=== PATIENT | female | born 1940 | race Caucasian/White ===

== ENCOUNTER 2016-11-15 08:00 | Outpatient (CLI) | payer MEDICARE, OTHER | END 2016-11-15 08:01 | disposition home or self-care (01) | DX: Z79.01 Long term (current) use of anticoagulants (principal) ==

== ENCOUNTER 2016-12-12 07:44 | Outpatient (CLI) | payer MEDICARE, OTHER ==
[2016-12-12 12:51] LABS: BASOPHILS # (AUTO) 0.1 10^3/uL (0.0-0.1); EOSINOPHILS # (AUTO) 0.4 10^3/uL (0.0-0.7); EOSINOPHILS % (AUTO) 7.1 %; HCT - HEMATOCRIT 29.3 % (37.0-47.0); HGB - HEMOGLOBIN 10.1 g/dL (12.0-16.0); LYMPHOCYTES % (AUTO) 18.5 %; MEAN CORPUSCULAR HEMOGLOBIN 35.6 pg (27.0-31.0); MEAN CORPUSCULAR HGB CONC 34.4 g/dL (32.0-36.0); MEAN CORPUSCULAR VOLUME 103.5 fL (81.0-99.0); MEAN PLATELET VOLUME 8.5 fL (7.9-10.8); MONOCYTES # (AUTO) 0.5 10^3/uL (0.0-1.0); MONOCYTES % (AUTO) 9.8 %; NEUTROPHILS # (AUTO) 3.3 10^3/uL (1.5-6.6); NEUTROPHILS % (AUTO) 63.6 %; RED BLOOD COUNT 2.83 10^6/uL (4.20-5.40); RED CELL DISTRIBUTION WIDTH 14.5 % (12.0-15.0); UNCORRECTED WHITE BLOOD COUNT 5.2 x10^3/uL; WHITE BLOOD COUNT 5.2 x10^3/uL (4.8-10.8)
[2016-12-12 12:55] LABS: BILIRUBIN,URINE NEGATIVE (NEGATIVE)
[2016-12-12 13:02] LABS: UA CHARGE (STRIP ONLY) YES
[2016-12-12 13:12] LABS: BILIRUBIN,TOTAL 0.6 mg/dL (0.2-1.0); BUN - BLOOD UREA NITROGEN 15 mg/dL (6-20); CALCIUM 9.1 mg/dL (8.5-10.3); CARBON DIOXIDE - CO2 28 mmol/L (21-32); CHLORIDE 104 mmol/L (101-111); CHOLESTEROL 146 mg/dL; CREATININE 0.9 mg/dL (0.4-1.0); GFR - MDRD 61 (>89); GLUCOSE 78 mg/dL (70-100); HDL CHOLESTEROL 72 mg/dL; LDL/HDL RATIO 0.9 (<4.4); POTASSIUM 4.1 mmol/L (3.5-5.0); SODIUM 141 mmol/L (135-145); TOTAL PROTEIN 6.5 g/dL (6.7-8.2); TRIGLYCERIDES 46 mg/dL; URIC ACID 4.1 mg/dL (2.6-7.2); VLDL CHOLESTEROL 9 mg/dL
== END 2016-12-12 07:45 | disposition home or self-care (01) ==
LOC: LAB.F 07:44
PROVIDERS: ATTEND Family Medicine
DX: N18.3 Chronic kidney disease, stage 3 (moderate) (principal); E78.5 Hyperlipidemia, unspecified; I80.3 Phlebitis and thrombophlebitis of lower extremities, unspecified
CPT/HCPCS: 36415; 80053; 80061; 81001; 81003; 84550; 85025; 85610

== ENCOUNTER 2017-01-16 07:57 | Outpatient (CLI) | payer MEDICARE, OTHER | END 2017-01-16 07:58 | disposition home or self-care (01) | DX: Z79.01 Long term (current) use of anticoagulants (principal) ==

== ENCOUNTER 2017-02-20 07:55 | Outpatient (CLI) | payer MEDICARE, OTHER | END 2017-02-20 07:56 | disposition home or self-care (01) | DX: Z79.01 Long term (current) use of anticoagulants (principal) ==

== ENCOUNTER 2017-03-24 07:25 | Outpatient (CLI) | payer MEDICARE, OTHER | END 2017-03-24 07:26 | disposition home or self-care (01) | LOC: LAB.F 07:25 | PROVIDERS: ATTEND Family Medicine | DX: Z79.01 Long term (current) use of anticoagulants (principal) | CPT/HCPCS: 85610 ==

== ENCOUNTER 2017-04-19 09:55 | Outpatient (CLI) | payer MEDICARE, OTHER | END 2017-04-19 09:56 | disposition home or self-care (01) | LOC: EMS 09:55 | PROVIDERS: ATTEND Surgery | DX: R11.11 Vomiting without nausea (principal) | CPT/HCPCS: A0425; A0427 ==

== ENCOUNTER 2017-04-19 10:25 | Inpatient (IN) | payer MEDICARE, OTHER ==
--- NOTE | 2017-04-19 10:43 | ED Physician Documentation ---
History of Present Illness - Stated complaint Stated Complaint: ABD PX - Chief complaint Chief Complaint: Abd Pain - Additonal information Additional information: hx from son pt has had bowel issues for a bout a month, had a CT 4 wk ago that showed a blockage, put on miralax, rpt CT 2 wk ago improved, weaned off miralax, now with NV abd discomfort and dec mental status for several days last BM unknown fever today no blood in diarrhea no urinary sx Review of Systems Constitutional: denies: Fever, Chills Ears: denies: Ear pain Throat: denies: Sore throat Cardiac: denies: Chest pain / pressure Respiratory: denies: Dyspnea GI: reports: Abdominal Pain, Nausea, Vomiting. denies: Diarrhea, Bloody / black stool : denies: Dysuria Endocrine: denies: Easy bruising / bleeding Immunocompromised: denies: Immunocompromised PD PAST MEDICAL HISTORY - Past Medical History Cardiovascular: Congestive heart failure, Hypertension - Past Surgical History Past Surgical History: Yes - Present Medications Home Medications: Ambulatory Orders Medication Instructions Recorded Confirmed Furosemide [Lasix] 20 mg PO 07/14/13 07/14/13 Gabapentin [Neurontin] 100 mg PO 07/14/13 07/14/13 Methylprednisolone [Medrol] 8 mg PO 07/14/13 07/14/13 Metoprolol Succinate [Toprol Xl] 25 mg PO BID 07/14/13 07/14/13 Potassium Chloride 10 meq PO 07/14/13 07/14/13 Pravastatin Sodium 10 mg PO 07/14/13 07/14/13 Warfarin Sodium [Coumadin] 5 mg PO 07/14/13 07/14/13 oxyCODONE/ACET 5/325 [Percocet 5 1 each PO Q4-6H PRN #20 tablet 07/14/13 mg/325 mg] - Allergies Allergies/Adverse Reactions: Allergies Allergy/AdvReac Type Severity Reaction Status Date / Time latex Allergy Unknown Verified 04/19/17 10:28 Penicillins Allergy anaphylaxis Verified 07/14/13 16:20 - Social History Does the pt smoke?: No Smoking Status: Never smoker Does the pt drink ETOH?: Yes Does the pt have substance abuse?: No PD ED PE NORMAL - Vitals Vital signs reviewed: Yes - General General: Alert and oriented X 3 - HEENT HEENT: Other (moaning, still occasional rethcing after zofran) - Neck Neck: Supple, no meningeal sign - Cardiac Cardiac: RRR - Respiratory Respiratory: No respiratory distress, Clear bilaterally - Abdomen Abdomen: Soft, Other (mild ) - Rectal Rectal: Other (empty vault, heme neg QC passed) - Derm Derm: Normal color Results - Vitals Vitals: Vital Signs - 24 hr 04/19/17 04/19/17 04/19/17 10:24 11:03 13:18 Temperature 38.6 C H Heart Rate 74 71 81 Respiratory 18 20 18 Rate Blood Pressure 114/58 L 129/52 L 107/58 L O2 Saturation 94 97 96 Oxygen O2 Source Nasal cannula - Labs Labs: Laboratory Tests 04/19/17 04/19/17 04/19/17 10:40 10:40 10:40 WBC 9.8 RBC 2.80 L Hgb 10.0 L Hct 29.4 L MCV 105.0 H MCH 35.7 H MCHC 34.0 RDW 15.7 H Plt Count 208 MPV 7.9 Neut # 8.9 H Lymph # 0.4 L Long # 0.4 Eos # 0.0 Baso # 0.1 Absolute Nucleated RBC 0.00 Nucleated RBCs 0.0 Sodium 137 Potassium 3.6 Chloride 104 Carbon Dioxide 23 Anion Gap 10.0 BUN 16 Creatinine 1.0 Estimated GFR (MDRD) 54 L Glucose 118 H Lactic Acid 1.1 Calcium 8.1 L Total Bilirubin 0.8 AST 24 ALT 12 Alkaline Phosphatase 37 L Total Protein 6.1 L Albumin 3.2 Globulin 2.9 Albumin/Globulin Ratio 1.1 Lipase 21 L Urine Color Urine Clarity Urine pH Ur Specific Sharples Urine Protein Urine Glucose (UA) Urine Ketones Urine Occult Blood Urine Nitrite Urine Bilirubin Urine Urobilinogen Ur Leukocyte Esterase Urine RBC Urine WBC Ur Epithelial Cells Ur Squamous Epith Cells Urine Bacteria Ur Microscopic Review Urine Culture Comments 04/19/17 12:45 WBC RBC Hgb Hct MCV MCH MCHC RDW Plt Count MPV Neut # Lymph # Long # Eos # Baso # Absolute Nucleated RBC Nucleated RBCs Sodium Potassium Chloride Carbon Dioxide Anion Gap BUN Creatinine Estimated GFR (MDRD) Glucose Lactic Acid Calcium Total Bilirubin AST ALT Alkaline Phosphatase Total Protein Albumin Globulin Albumin/Globulin Ratio Lipase Urine Color YELLOW Urine Clarity CLEAR Urine pH 8.0 H Ur Specific Sharples 1.010 Urine Protein 100 H Urine Glucose (UA) NEGATIVE Urine Ketones TRACE Urine Occult Blood NEGATIVE Urine Nitrite NEGATIVE Urine Bilirubin NEGATIVE Urine Urobilinogen 1 (NORMAL) Ur Leukocyte Esterase NEGATIVE Urine RBC 0-5 Urine WBC 0-3 Ur Epithelial Cells RARE Renal Tubular Ur Squamous Epith Cells FEW Squamous Urine Bacteria None Seen Ur Microscopic Review INDICATED Urine Culture Comments NOT INDICATED - Rads (name of study) CT abd pelvis Radiology: See rad report (no SBO, inflammation, or ascites, no renal stones, patchy pulm opacity lingula with L pleural effusion suggesting pna, mod hiatal hernia, CAD, borderline cardiomegaly) CXR Radiology: See rad report (LLL RLL pna) PD MEDICAL DECISION MAKING - ED course ED course: H/H not new for pt CT showed no acute abd process but did shows LLL pna which was confirmed on CXR likely cause of the vomiting will admit Departure - Departure Disposition: 66 [facility] DC/Xfer Clinical Impression: Pneumonia
[2017-04-19 10:55] LABS: BASOPHILS # (AUTO) 0.1 10^3/uL (0.0-0.1); BASOPHILS % (AUTO) 0.5 %; EOSINOPHILS % (AUTO) 0.1 %; HCT - HEMATOCRIT 29.4 % (37.0-47.0); LYMPHOCYTES # (AUTO) 0.4 10^3/uL (1.5-3.5); LYMPHOCYTES % (AUTO) 4.6 %; MEAN CORPUSCULAR HEMOGLOBIN 35.7 pg (27.0-31.0); MEAN PLATELET VOLUME 7.9 fL (7.9-10.8); MONOCYTES # (AUTO) 0.4 10^3/uL (0.0-1.0); MONOCYTES % (AUTO) 4.3 %; NEUTROPHILS # (AUTO) 8.9 10^3/uL (1.5-6.6); NEUTROPHILS % (AUTO) 90.5 %; RED CELL DISTRIBUTION WIDTH 15.7 % (12.0-15.0); UNCORRECTED WHITE BLOOD COUNT 9.8 x10^3/uL; WHITE BLOOD COUNT 9.8 x10^3/uL (4.8-10.8)
[2017-04-19 11:20] LABS: ALBUMIN/GLOBULIN RATIO 1.1 (1.0-2.2); BILIRUBIN,TOTAL 0.8 mg/dL (0.2-1.0); CALCIUM 8.1 mg/dL (8.5-10.3); POTASSIUM 3.6 mmol/L (3.5-5.0); TOTAL PROTEIN 6.1 g/dL (6.7-8.2)
--- NOTE | 2017-04-19 11:39 | CT Preliminary Report ---
Exam: CT Abdomen/Pelvis W/O IMPRESSION: 1. Negative for bowel obstruction, acute inflammatory changes, or ascites. 2. No renal stone or hydronephrosis. 3. Patchy moderate-sized pulmonary opacity in the lingula with minimal left pleural effusion, suggest ing non-specific infiltrate or pneumonia. 4. Coronary artery disease, borderline to mild cardiomegaly; negative for congestive heart failure. 5. Moderate sized hiatal hernia. [facility] SITE ID: [id number]
--- NOTE | 2017-04-19 11:42 | CT Report ---
EXAM: CT ABDOMEN AND PELVIS (CT KUB) EXAM DATE: 04/19/2017 10:59 AM. CLINICAL HISTORY: Abdominal pain, intractable vomiting, fever. COMPARISONS: None. TECHNIQUE: Routine axial helical CT imaging was performed through the abdomen and pelvis without IV c ontrast. Reconstructions: Coronal and sagittal. In accordance with CT protocol optimization, one or more of the following dose reduction techniques w ere utilized for this exam: automated exposure control, adjustment of mA and/or KV based on patient s ize, or use of iterative reconstructive technique. FINDINGS: Lung Bases and lower chest: Patchy moderate-sized opacity in the lingula with minimal left pleural ef fusion visualized. There is a moderately sized hiatal hernia. There is coronary artery calcification with borderline to mild cardiomegaly. Kidney/Ureter: No stones, hydronephrosis, or hydroureter. No perinephric fat stranding. Other Solid Organs: Noncontrast images of the solid organs are grossly unremarkable. Gallbladder/Bile Ducts: Unremarkable. Peritoneal Cavity: No free fluid, free air or surjit adenopathy. Bowel is grossly unremarkable. The ap pendix is not visualized; no mass, inflammatory changes or fluid collection in the right lower abdome n seen. Pelvic Organs: The uterus is not seen. No bladder stones or wall thickening. Noncontrast images of th e visualized pelvic organs are unremarkable. Vasculature: Diffuse vascular wall calcification of the abdominal aorta and bilateral iliac arteries without aneurysm. Other: There is a severe anterior compression fracture with hyperdensity in the anterior portion of t he T11, likely both vertebroplasty. Moderate to severe anterior compression fracture in the T9, and m ild anterior compression fracture in the T12 also noted. There is anterior transition of the L4 and L 5, 5 mm. IMPRESSION: 1. Negative for bowel obstruction, acute inflammatory changes, or ascites. 2. No renal stone or hydronephrosis. 3. Patchy moderate-sized pulmonary opacity in the lingula with minimal left pleural effusion, suggest ing non-specific infiltrate or pneumonia. 4. Coronary artery disease, borderline to mild cardiomegaly; negative for congestive heart failure. 5. Moderate sized hiatal hernia. [facility] Referring Provider Line: [phone] SITE ID: [id number]
[2017-04-19] MEDS ORDERED: ONDANSETRON 4 MG/2 ML VIAL IVP STA (12:10)
[2017-04-19] MEDS ORDERED: ACETAMINOPHEN 1,000 MG/100 ML 100 ML IV STA (12:10)
[2017-04-19] MEDS ORDERED: ACETAMINOPHEN 1,000 MG/100 ML 100 ML IV ONE (12:11)
[2017-04-19] MEDS ORDERED: ONDANSETRON 4 MG/2 ML VIAL ONE (12:19)
[2017-04-19 13:42] LABS: BILIRUBIN,URINE NEGATIVE (NEGATIVE)
[2017-04-19 13:47] LABS: UA w/ MICROSCOPIC CHARGE YES
--- NOTE | 2017-04-19 13:51 | XRAY Preliminary Report ---
Exam: XR Chest 2 View PA/LAT IMPRESSION: 1. Trace left pleural effusion with left lower lobe and minimal right lower lobe airspace disease sug gestive of pneumonia. 2. Cardiomegaly. [facility] SITE ID: [id number]
--- NOTE | 2017-04-19 13:53 | XRAY Report ---
EXAM: CHEST RADIOGRAPHY EXAM DATE: 04/19/2017 01:09 PM. CLINICAL HISTORY: Intractable vomiting and fever. COMPARISON: Chest x-ray 07/14/2013. TECHNIQUE: 2 views. FINDINGS: Lungs/Pleura: Trace left pleural effusion with patchy airspace disease in the left lower lobe and min imally in the right lower lobe. Mediastinum: Mild cardiomegaly with atherosclerotic calcification. Other: Old appearing compression fractures mid thoracic spine status post vertebroplasty at the lower thoracic spine. IMPRESSION: 1. Trace left pleural effusion with left lower lobe and minimal right lower lobe airspace disease sug gestive of pneumonia. 2. Cardiomegaly. [facility] Referring Provider Line: [phone] SITE ID: [id number]
[2017-04-19 13:54] LABS: WBC,URINE 0-3 /HPF (0-5)
[2017-04-19 13:55] LABS: UR CULTURE IF IND NOT INDICATED
[2017-04-19] MEDS ORDERED: cefTRIAXone 1 GM in SODIUM CHLORIDE 0.9% MINIBAG 100 ML IV STA (13:57)
[2017-04-19] MEDS ORDERED: AZITHROMYCIN INJ 500 MG in SODIUM CHLORIDE 0.9% 250 ML IV STA (13:57)
[2017-04-19] MEDS ORDERED: cefTRIAXone 1 GM VIAL ONE (14:08)
[2017-04-19] MEDS ORDERED: ONDANSETRON 4 MG/2 ML VIAL IVP PRN (14:32)
[2017-04-19] MEDS ORDERED: PROCHLORPERAZINE 10 MG/2 ML VIAL IVP PRN (14:32)
[2017-04-19] MEDS ORDERED: ALBUTEROL NEB 2.5 MG/3 ML INH PRN (14:32)
[2017-04-19] MEDS ORDERED: SODIUM CHLORIDE FLUSH 0.9% 10 ML SYRINGE IVP PRN (14:32)
[2017-04-19] MEDS ORDERED: ACETAMINOPHEN 325 MG TABLET PO PRN (14:32)
[2017-04-19] MEDS ORDERED: PROMETHAZINE 25 MG/1 ML VIAL IM PRN (14:32)
[2017-04-19] MEDS ORDERED: oxyCODONE 5 MG TABLET PO PRN (14:32)
[2017-04-19] MEDS ORDERED: ZOLPIDEM 5 MG TABLET PO PRN (14:32)
[2017-04-19] MEDS ORDERED: IBUPROFEN 400 MG TABLET PO PRN (14:32)
[2017-04-19 14:58] LABS: INR 1.4 (0.8-1.2); PT - PROTHROMBIN TIME 15.5 secs (9.9-12.6)
[2017-04-19] MEDS ORDERED: ACETAMINOPHEN 1,000 MG/100 ML 100 ML IV PRN (15:36)
[2017-04-19] MEDS: SODIUM CHLORIDE 0.9% 1,000 ML IV SCH (16:08)
[2017-04-19] MEDS: AZITHROMYCIN INJ 500 MG in SODIUM CHLORIDE 0.9% 250 ML IV SCH (17:20)
[2017-04-19] MEDS: SACCHAROMYCES BOULARDII 250 MG CAPSULE PO SCH (17:21)
--- NOTE | 2017-04-19 18:59 | HISTORY & PHYSICAL EXAMINATION ---
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 difficile 5 years ago, history of MRSA pneumonia and osteoporosis as well as osteoarthritis who presents to the emergency department with a chief complaint of nausea and vomiting. The patient states that she was in her normal state of health 2 days ago and went about her normal day but then that evening when she went to bed she began feeling nauseous and had an episode of vomiting. She states that after that episode she has been having dry heaving for the last day and a half to. She states that yesterday she ran a fever her son has been trying to treat her with fluids and Tylenol at home. The patient's fever was 101.6 at home. The patient states that today she was feeling chills and she's having generalized weakness to a point where she could barely get up out of her bed. The patient does admit to some abdominal pain but feels that it is secondary to her having dry heaving over the last 2 days. She also admits that she's been sneezing more often than normal. She otherwise denies any shortness of air or cough. She denies any chest pain. She denies any urinary urgency frequency or dysuria. She denies any headaches blurred vision or focal neurologic deficits. On presentation to the emergency department the patient was febrile with a temperature of 38.6 otherwise vital signs were within normal limits. The patient 's lab work revealed no leukocytosis it did show anemia. The patient's INR was subtherapeutic at 1.4. Her electrolytes were within normal limits and she had a normal lactic acid. The patient was given an antibiotic in the emergency department with which she did feel better but then later began having nausea and felt as though she was going to vomit again. The patient did not have any significant abdominal tenderness but a CT of the abdomen and pelvis was ordered. The CT was negative for any bowel obstruction or acute inflammatory changes or ascites. Also did not reveal any renal stones or hydronephrosis. The patient however did have patchy moderate-sized pulmonary opacities in the lingula with minimal left pleural effusion suggesting nonspecific infiltrate or pneumonia. The patient also had a chest x-ray which revealed a left lower lobe and minimal right lower lobe airspace disease suggestive for pneumonia. Given the patient's presentation with nausea vomiting and generalized weakness as well as fever this appeared most likely to be an atypical pneumonia. The patient was initially given ceftriaxone and azithromycin in the emergency department and she was admitted for pneumonia. Review of Systems - Constitutional Constitutional: reports: Fatigue, Fever, Chills, Malaise, Weakness, Poor appetite. denies: Diaphoresis, Night sweats, Weight gain, Weight loss - Eyes Eyes: denies: Pain, Irritation, Amaurosis, Blurred vision, Spots in vision, Field loss, Vision loss, Dipolpia, Corrective lenses, Other - Ears, Nose & Throat Ears, Nose & Throat: denies: Ear pain, Hearing loss, Hearing aids, Tinnitus, Vertigo, Nasal pain, Nasal discharge, Nosebleeds, Nasal obstruction, Nasal congestion, Postnasal drainage, Dentures, Sore throat, Hoarseness, Mouth lesions , Bleeding gums, Dental decay, Dental pain, Other - Cardiovascular Cariovascular: denies: Irregular heart rate, Palpitations, Chest pain, Edema, Lightheadedness, Syncope, Exertional dyspnea, Decr. exercise tolerance, Orthopnea, Other - Respiratory Respiratory: denies: Cough, Sputum production, Wheezing, Snoring, Hemoptysis, Orthopnea, SOB at rest, SOB with exertion, Apnea, Stridor, Pleuritic pain, Other - Gastrointestinal Gastrointestinal: reports: Abdominal pain, Nausea, Vomiting, Bile emesis, Poor appetite. denies: Abdominal distention, Constipation, Diarrhea, Change in bowel habits, Rectal bleeding, Black stools, Bloody stools, Jimmy blood emesis, Coffee grounds emesis, Reflux/heartburn, Bloating - Genitourinary Genitourinary: denies: Dysuria, Frequency, Urgency, Hematuria, Incontinence, Nocturia - Musculoskeletal Musculoskeletal: denies: Muscle pain, Back pain, Muscle aches, Stiffness, Limited range of motion, Muscle weakness, Gout, Joint pain, Joint swelling - Integumentary Integumentary: denies: Rash, Pruritis, Lesions, Dryness, Lumps, Acne - Neurological Neurological: reports: General weakness. 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 2 hypertension. 3 hyperlipidemia. 4 history of see differential 5 years ago. 5 MRSA pneumonia. 6 osteoporosis. 7 osteoarthritis. 8 recurrent falls with multiple broken bones. 9 rotator cuff surgery - Past Surgical History Ortho: reports: Rotator cuff repair, Shoulder arthroplasty - Family & Social History Family History Comment/Other: Brother had coronary artery disease, father had an NH at the age of 49 and mom had breast cancer. Living arrangement: At home Living Situation: With family Social History Notes: The patient lives in [facility] she lives with her son. She has 2 sons one of whom lives in [facility] and the other who lives with her. She's been living on [facility] since [place]. She was born and raised in [facility]. She is a nonsmoker she does drink a glass of wine a night she denies any illicit drug use. - Substance History Use: Uses substance without health or social issues: NONE Abuse: Recurrent use of substance despite neg consequences: NONE Dependence: Experiences withdrawal or developed tolerances: NONE - POLST Patient has POLST: No POLST Status: Full Code Meds/Allgy - Home Medications Home Medications: Ambulatory Orders Medication Instructions Recorded Confirmed Furosemide [Lasix] 20 mg PO Q48H 07/14/13 04/19/17 Methylprednisolone [Medrol] 8 mg PO 07/14/13 07/14/13 Metoprolol Succinate [Toprol Xl] 25 mg PO BID 07/14/13 07/14/13 Potassium Chloride 10 meq PO DAILYWM 07/14/13 04/19/17 Warfarin Sodium [Coumadin] 5 mg PO 07/14/13 07/14/13 Alendronate Sodium [Alendronate 70 mg PO .WEEKLY 04/19/17 04/19/17 Sodium] Allopurinol [Allopurinol] 200 mg PO DAILY 04/19/17 04/19/17 Citalopram Hydrobromide 20 mg PO DAILY 04/19/17 04/19/17 [Citalopram HBr] Gabapentin [Gabapentin] 600 mg PO TID 04/19/17 04/19/17 Omeprazole [Omeprazole] 20 mg PO QDAC 04/19/17 04/19/17 Pravastatin Sodium [Pravastatin 80 mg PO QPM 04/19/17 04/19/17 Sodium] - Allergies Allergies/Adverse Reactions: Allergies Allergy/AdvReac Type Severity Reaction Status Date / Time latex Allergy Unknown Verified 04/19/17 10:28 Penicillins Allergy anaphylaxis Verified 07/14/13 16:20 Exam - Vital Signs Reviewed Vital Signs: Yes Vital Signs: Vital Signs x48h Temp Pulse Pulse Resp BP BP Pulse Ox 04/19/17 18:46 37.0 C 04/19/17 16:05 36.5 C 66 20 101/65 94 04/19/17 15:04 76 18 111/58 L 93 - Physical Exam General Appearance: positive: Alert, Mild distress (Nauseated, looks very dry) Eyes Bilateral: positive: Normal inspection, PERRL, EOMI, No lid inflammation, Conjunctivae nml, No scleral icterus ENT: positive: ENT inspection nml, Pharynx nml, Dry mucous membranes. negative : Purulent nasal drainage, Pharyngeal erythema, Oral lesions Neck: positive: Nml inspection, Thyroid nml, No JVD, Trachea midline. negative : Thyromegaly, Lymphadenopathy (R), Lymphadenopathy (L), Tracheal deviation Respiratory: positive: Chest non-tender, No respiratory distress, Breath sounds nml, Rales (Left base), Rhonchi (Bases bilaterally). negative: Wheezes Cardiovascular: positive: Regular rate & rhythm, No murmur, No gallop Peripheral Pulses: positive: 2+ Abdomen: positive: No organomegaly, Nml bowel sounds, No distention, Tenderness (Mild tenderness in the lower abdomen). negative: Guarding, Rebound, Hepatomegaly Back: positive: Nml inspection. negative: CVA tenderness (R), CVA tenderness (L ) Skin: positive: Color nml, No rash, Warm, Dry Extremities: positive: Non-tender, Full ROM, Nml appearance, No pedal edema Neurologic/Psychiatric: positive: Oriented x3, CN's nml (2-12), Motor nml, Sensation nml, Mood/affect nml Conclusion/Plan - Problem List (1) Community acquired pneumonia Conclusion/Plan: Patient presented with symptoms of atypical pneumonia with nausea, vomiting, fever and generalized weakness. She did have some increased sneezing but no shortness of breath and no cough. Her CT abd and CXR did show findings consistent with pneumonia Patient treated with IV ceftriaxone and azithromycin in the ED Given that this looks like atypical pneumonia we will treat with azithromycin alone Also will send off for mycoplasma and legionella ag Given IVFs Control nausea with antiemetics (2) Intractable nausea and vomiting Conclusion/Plan: Likely secondary to atypical pneumonia viral vs bacterial Will treat with azithromycin IVFs Antiemietics IV (3) Hypertension Conclusion/Plan: BP controlled will continue home meds Qualifiers: Hypertension type: essential hypertension Qualified Code(s): I10 - Essential (primary) hypertension (4) Hyperlipidemia Conclusion/Plan: Continue home statin (5) History of pulmonary embolism Conclusion/Plan: Continue coumadin INR subtherapeutic Monitor INR daily (6) Subtherapeutic international normalized ratio (INR) Conclusion/Plan: Monitor INR Adjust coumadin - Lab Results Lab results reviewed: Yes Ej Bones: 04/19/17 10:40 04/19/17 10:40 - Diagnostic Imaging Results Diagnostic Imaging Results: positive: Final report reviewed - EKG Results EKG Interpreted Independently: Yes Issues/Core Measures - Anticipated LOS Anticipated Stay Length: 2 or more midnights - DVT/VTE - Prophylaxis VTE/DVT Device ordered at admit?: Yes
[2017-04-19] MEDS: ACETAMINOPHEN 1,000 MG/100 ML 100 ML IV PRN (21:10)
[2017-04-19] MEDS: SODIUM CHLORIDE FLUSH 0.9% 10 ML SYRINGE IVP SCH (21:14)
[2017-04-19] MEDS: PRAVASTATIN 40 MG TABLET PO SCH (23:04)
[2017-04-19] MEDS: METOPROLOL SUCCINATE 25 MG TABLET PO SCH (23:04)
[2017-04-19] MEDS: GABAPENTIN 300 MG CAPSULE PO SCH (23:05)
[2017-04-20] MEDS: SODIUM CHLORIDE 0.9% 1,000 ML IV SCH ×3 (03:12→18:40)
[2017-04-20] MEDS: SODIUM CHLORIDE FLUSH 0.9% 10 ML SYRINGE IVP SCH ×3 (05:25→21:26)
[2017-04-20] MEDS: GABAPENTIN 300 MG CAPSULE PO SCH ×3 (06:16→21:25)
[2017-04-20] MEDS: PANTOPRAZOLE 40 MG TABLET PO SCH (06:16)
[2017-04-20 06:54] LABS: BASOPHILS % (AUTO) 0.4 %; EOSINOPHILS % (AUTO) 0.3 %; HCT - HEMATOCRIT 30.2 % (37.0-47.0); HGB - HEMOGLOBIN 10.2 g/dL (12.0-16.0); LYMPHOCYTES # (AUTO) 0.4 10^3/uL (1.5-3.5); LYMPHOCYTES % (AUTO) 4.4 %; MEAN CORPUSCULAR HEMOGLOBIN 35.8 pg (27.0-31.0); MEAN CORPUSCULAR HGB CONC 33.7 g/dL (32.0-36.0); MEAN CORPUSCULAR VOLUME 106.4 fL (81.0-99.0); MEAN PLATELET VOLUME 7.8 fL (7.9-10.8); MONOCYTES # (AUTO) 0.3 10^3/uL (0.0-1.0); MONOCYTES % (AUTO) 3.6 %; NEUTROPHILS # (AUTO) 7.8 10^3/uL (1.5-6.6); NEUTROPHILS % (AUTO) 91.3 %; RED BLOOD COUNT 2.83 10^6/uL (4.20-5.40); RED CELL DISTRIBUTION WIDTH 15.6 % (12.0-15.0); UNCORRECTED WHITE BLOOD COUNT 8.5 x10^3/uL; WHITE BLOOD COUNT 8.5 x10^3/uL (4.8-10.8)
[2017-04-20 07:01] LABS: CALCIUM 7.8 mg/dL (8.5-10.3); POTASSIUM 3.5 mmol/L (3.5-5.0)
[2017-04-20 07:15] LABS: INR 1.2 (0.8-1.2); PT - PROTHROMBIN TIME 13.9 secs (9.9-12.6)
[2017-04-20] MEDS: POLYETHYLENE GLYCOL 3350 17 GM PACKET PO SCH (08:59)
[2017-04-20] MEDS: SACCHAROMYCES BOULARDII 250 MG CAPSULE PO SCH ×2 (08:59→16:58)
[2017-04-20] MEDS: ALLOPURINOL 100 MG TABLET PO SCH (08:59)
[2017-04-20] MEDS: CITALOPRAM 10 MG TABLET PO SCH (08:59)
[2017-04-20] MEDS: METOPROLOL SUCCINATE 25 MG TABLET PO SCH ×2 (08:59→21:25)
[2017-04-20] MEDS ORDERED: cefTRIAXone 2 GM in SODIUM CHLORIDE 0.9% MINIBAG 100 ML IV SCH (09:00)
[2017-04-20] MEDS: AZITHROMYCIN INJ 500 MG in SODIUM CHLORIDE 0.9% 250 ML IV SCH (11:20)
[2017-04-20] MEDS ORDERED: WARFARIN 5 MG TABLET PO SCH (14:00)
[2017-04-20] MEDS: cefTRIAXone 2 GM in SODIUM CHLORIDE 0.9% MINIBAG 100 ML IV SCH (14:53)
--- NOTE | 2017-04-20 16:03 | PROVIDER PROGRESS NOTE ---
Assessment/Plan - Problem List (1) Community acquired pneumonia Assessment/Plan: Patient presented with symptoms of atypical pneumonia with nausea, vomiting, fever and generalized weakness. She did have some increased sneezing but no shortness of breath and no cough. Her CT abd and CXR did show findings consistent with pneumonia Patient initially thought to have atypical pneumonia but now appears to have more typical symptoms Patient having coughing, hypoxia and increased shortness of breath Appears to be worsening Will place on Ceftriaxone and azithromycin IV day 2 Supplemental O2 Appears very weak may need PT once improved Patient does have a subtherapeutic INR and could also have a PE will monitor respiratory status closely (2) Intractable nausea and vomiting Conclusion/Plan: Likely secondary to atypical pneumonia or viral gastroenteritis IVFs Antiemietics IV Resolving (3) Hypertension Conclusion/Plan: BP controlled will continue home meds Qualifiers: Hypertension type: essential hypertension Qualified Code(s): I10 - Essential (primary) hypertension (4) Hyperlipidemia Conclusion/Plan: Continue home statin (5) History of pulmonary embolism Conclusion/Plan: Continue coumadin INR subtherapeutic INR down to 1.2 today will increase next dose of coumadin (6) Subtherapeutic international normalized ratio (INR) Conclusion/Plan: Monitor INR INR down to 1.2 today Adjust coumadin dose - Current Meds Current Meds: Current Medications Generic Name Dose Route Start Last Admin Trade Name Martita PRN Reason Stop Dose Admin Allopurinol 200 mg 04/20/17 09:00 04/20/17 08:59 Zyloprim PO 200 mg DAILY LATANYA Administration Citalopram Hydrobromide 20 mg 04/20/17 09:00 04/20/17 08:59 Celexa PO 20 mg DAILY LATANYA Administration Gabapentin 600 mg 04/19/17 22:00 04/20/17 14:12 Neurontin PO 600 mg TID LATANYA Administration Sodium Chloride 1,000 mls @ 100 mls/hr 04/19/17 16:30 04/20/17 14:45 Normal Saline 0.9% IV Not Given .Q10H LATANYA Azithromycin 500 mg/ Sodium 250 mls @ 250 mls/hr 04/19/17 17:00 04/20/17 11:20 Chloride IV 250 mls/hr DAILY@1000 LATANYA Administration Acetaminophen 100 mls @ 400 mls/hr 04/19/17 18:00 04/19/17 21:10 Ofirmev IV 400 mls/hr Q6HR PRN Administration PAIN Ceftriaxone Sodium 2 gm/ 100 mls @ 200 mls/hr 04/20/17 14:45 04/20/17 14:53 Sodium Chloride IV 200 mls/hr DAILY LATANYA Administration Metoprolol Succinate 25 mg 04/19/17 21:00 04/20/17 08:59 Toprol Xl PO 25 mg BID LATANYA Administration Ondansetron HCl 4 mg 04/19/17 14:32 04/19/17 21:14 Zofran Inj IVP 4 mg Q6HR PRN Administration Nausea / Vomiting Pantoprazole Sodium 40 mg 04/20/17 07:00 04/20/17 06:16 Protonix PO 40 mg QDAC LATANYA Administration Polyethylene Glycol 17 gm 04/20/17 09:00 04/20/17 08:59 Miralax PO 17 gm DAILY LATANYA Administration Pravastatin Sodium 80 mg 04/19/17 21:00 04/19/17 23:04 Pravachol PO Not Given QPM LATANYA Saccharomyces Boulardii 250 mg 04/19/17 17:00 04/20/17 08:59 Florastor PO 250 mg BIDWM LATANYA Administration Sodium Chloride 10 ml 04/19/17 14:32 04/19/17 16:08 Normal Saline Flush 0.9% IVP 10 ml PRN PRN Administration NEEDED PER PROVIDER ORDERS Sodium Chloride 10 ml 04/19/17 22:00 04/20/17 14:12 Normal Saline Flush 0.9% IVP Not Given Q8HR LATANYA Warfarin Sodium 5 mg 04/20/17 14:00 04/20/17 14:12 Coumadin PO 5 mg QDWARFARIN LATANYA Administration - Lab Result Lab results reviewed: Yes Fish Bone Diagrams: 04/20/17 06:30 04/20/17 06:30 - EKG Results EKG Interpreted Independently: Yes - Diagnostic Imaging Results Diagnostic Imaging Results: positive: Final report reviewed - Additional Planning Condition/Complexity: Improved My Orders: My Active Orders 04/19/17 16:33 Cultural Swab [RC] .ONCE 04/19/17 18:00 Acetaminophen 1,000 mg/100 ml [Ofirmev] 100 ml IV Q6HR 04/19/17 18:10 RT [Nebulizer/MDI Tx.] [RC] .Q4prn 04/20/17 14:45 cefTRIAXone [Rocephin] 2 gm Sodium Chloride 0.9% Minibag [Normal Saline 0.9% Minibag] 100 ml IV DAILY Plan Discussed with:: Patient Time Spent: 31-60 minutes Subjective - Subjective Patient Reports: Cough (Started coughing since last night), Fatigue, Shortness of Breath (Patient feels short of breath this morning.), Other (She feels very weak. No chest pain.) Nursing Reports: No Complaints Objective Vital Signs: Vital Signs - 24 hr 04/19/17 04/19/17 04/19/17 16:05 18:46 20:57 Temperature 36.5 C 37.0 C 38.1 C H Heart Rate [ 66 76 Brachial] Respiratory 20 24 Rate Blood Pressure [Left Brachial artery] Blood Pressure 101/65 133/67 H [Right Brachial artery] O2 Saturation 94 99 04/20/17 04/20/17 04/20/17 00:00 06:18 08:34 Temperature 36.9 C 36.7 C 37.7 C H Heart Rate [ 66 70 Brachial] Respiratory 16 19 Rate Blood Pressure 115/69 [Left Brachial artery] Blood Pressure 112/68 [Right Brachial artery] O2 Saturation 94 96 Oxygen O2 Source Nasal cannula I&O (Last 24 Hrs): Intake and Output Totals x24h 04/18/17 04/19/17 04/20/17 23:59 23:59 23:59 Intake Total 1163 2356 Balance 1163 2356 General: Alert, Oriented x3, Cooperative, Mild distress (Tachypnic and short of breath) HEENT: Atraumatic, PERRLA, EOMI Neck: Supple, No JVD, No thyromegaly, +2 carotid pulse wo bruit, No LAD Neuro: Alert, Non Focal, CN 2-12 Grossly Intact, Oriented Times 3 Cardiovascular: Regular rate, Normal S1, Normal S2, No murmurs Respiratory: Chest non-tender, Rhonchi (Bibasilar) Abdomen: Normal bowel sounds, Soft, No tenderness, No hepatospenomegaly, No masses Extremities: No clubbing, No cyanosis, No edema, Normal pulses Skin: No rashes, No breakdown - Results Results: Laboratory Results WBC 8.5 x10^3/uL (4.8-10.8) 04/20/17 06:30 RBC 2.83 10^6/uL (4.20-5.40) L 04/20/17 06:30 Hgb 10.2 g/dL (12.0-16.0) L 04/20/17 06:30 Hct 30.2 % (37.0-47.0) L 04/20/17 06:30 MCV 106.4 fL (81.0-99.0) H 04/20/17 06:30 MCH 35.8 pg (27.0-31.0) H 04/20/17 06:30 MCHC 33.7 g/dL (32.0-36.0) 04/20/17 06:30 RDW 15.6 % (12.0-15.0) H 04/20/17 06:30 Plt Count 204 10^3/uL (130-450) 04/20/17 06:30 MPV 7.8 fL (7.9-10.8) L 04/20/17 06:30 Neut # 7.8 10^3/uL (1.5-6.6) H 04/20/17 06:30 Lymph # 0.4 10^3/uL (1.5-3.5) L 04/20/17 06:30 Ritchie # 0.3 10^3/uL (0.0-1.0) 04/20/17 06:30 Eos # 0.0 10^3/uL (0.0-0.7) 04/20/17 06:30 Baso # 0.0 10^3/uL (0.0-0.1) 04/20/17 06:30 Absolute Nucleated RBC 0.00 x10^3/uL 04/20/17 06:30 Nucleated RBCs 0.0 /100WBC 04/20/17 06:30 PT 13.9 secs (9.9-12.6) H 04/20/17 06:30 INR 1.2 (0.8-1.2) 04/20/17 06:30 Sodium 138 mmol/L (135-145) 04/20/17 06:30 Potassium 3.5 mmol/L (3.5-5.0) 04/20/17 06:30 Chloride 105 mmol/L (101-111) 04/20/17 06:30 Carbon Dioxide 22 mmol/L (21-32) 04/20/17 06:30 Anion Gap 11.0 (6-13) 04/20/17 06:30 BUN 16 mg/dL (6-20) 04/20/17 06:30 Creatinine 1.0 mg/dL (0.4-1.0) 04/20/17 06:30 Estimated GFR (MDRD) 54 (>89) L 04/20/17 06:30 Glucose 106 mg/dL (70-100) H 04/20/17 06:30 Lactic Acid 1.1 mmol/L (0.5-2.2) 04/19/17 10:40 Calcium 7.8 mg/dL (8.5-10.3) L 04/20/17 06:30 Total Bilirubin 0.8 mg/dL (0.2-1.0) 04/19/17 10:40 AST 24 IU/L (10-42) 04/19/17 10:40 ALT 12 IU/L (10-60) 04/19/17 10:40 Alkaline Phosphatase 37 IU/L (42-121) L 04/19/17 10:40 Total Protein 6.1 g/dL (6.7-8.2) L 04/19/17 10:40 Albumin 3.2 g/dL (3.2-5.5) 04/19/17 10:40 Globulin 2.9 g/dL (2.1-4.2) 04/19/17 10:40 Albumin/Globulin Ratio 1.1 (1.0-2.2) 04/19/17 10:40 Lipase 21 U/L (22-51) L 04/19/17 10:40 Urine Color YELLOW 04/19/17 12:45 Urine Clarity CLEAR (CLEAR) 04/19/17 12:45 Urine pH 8.0 PH (5.0-7.5) H 04/19/17 12:45 Ur Specific [place] 1.010 (1.002-1.030) 04/19/17 12:45 Urine Protein 100 mg/dL (NEGATIVE) H 04/19/17 12:45 Urine Glucose (UA) NEGATIVE mg/dL (NEGATIVE) 04/19/17 12:45 Urine Ketones TRACE mg/dL (NEGATIVE) 04/19/17 12:45 Urine Occult Blood NEGATIVE (NEGATIVE) 04/19/17 12:45 Urine Nitrite NEGATIVE (NEGATIVE) 04/19/17 12:45 Urine Bilirubin NEGATIVE (NEGATIVE) 04/19/17 12:45 Urine Urobilinogen 1 (NORMAL) E.U./dL (NORMAL) 04/19/17 12:45 Ur Leukocyte Esterase NEGATIVE (NEGATIVE) 04/19/17 12:45 Urine RBC 0-5 /HPF (0-5) 04/19/17 12:45 Urine WBC 0-3 /HPF (0-5) 04/19/17 12:45 Ur Epithelial Cells RARE Renal Tubular /HPF (<= Few) 04/19/17 12:45 Ur Squamous Epith Cells FEW Squamous (<= Few) 04/19/17 12:45 Urine Bacteria None Seen /HPF (None Seen) 04/19/17 12:45 Ur Microscopic Review INDICATED 04/19/17 12:45 Urine Culture Comments NOT INDICATED 04/19/17 12:45
[2017-04-20] MEDS: ACETAMINOPHEN 1,000 MG/100 ML 100 ML IV PRN (16:10)
[2017-04-20] MEDS ORDERED: WARFARIN 5 MG TABLET PO ONE (17:00)
[2017-04-20] MEDS: PRAVASTATIN 40 MG TABLET PO SCH (21:26)
[2017-04-21] MEDS: SODIUM CHLORIDE 0.9% 1,000 ML IV SCH ×2 (04:13→19:45)
[2017-04-21 05:42] LABS: BASOPHILS % (AUTO) 0.6 %; EOSINOPHILS # (AUTO) 0.1 10^3/uL (0.0-0.7); EOSINOPHILS % (AUTO) 1.8 %; HCT - HEMATOCRIT 28.2 % (37.0-47.0); HGB - HEMOGLOBIN 9.2 g/dL (12.0-16.0); LYMPHOCYTES # (AUTO) 0.5 10^3/uL (1.5-3.5); LYMPHOCYTES % (AUTO) 7.8 %; MEAN CORPUSCULAR HEMOGLOBIN 35.3 pg (27.0-31.0); MEAN CORPUSCULAR HGB CONC 32.7 g/dL (32.0-36.0); MEAN CORPUSCULAR VOLUME 107.8 fL (81.0-99.0); MEAN PLATELET VOLUME 7.9 fL (7.9-10.8); MONOCYTES # (AUTO) 0.4 10^3/uL (0.0-1.0); MONOCYTES % (AUTO) 6.7 %; NEUTROPHILS # (AUTO) 5.4 10^3/uL (1.5-6.6); NEUTROPHILS % (AUTO) 83.1 %; RED BLOOD COUNT 2.62 10^6/uL (4.20-5.40); RED CELL DISTRIBUTION WIDTH 15.3 % (12.0-15.0); UNCORRECTED WHITE BLOOD COUNT 6.5 x10^3/uL; WHITE BLOOD COUNT 6.5 x10^3/uL (4.8-10.8)
[2017-04-21 05:46] LABS: INR 1.7 (0.8-1.2); PT - PROTHROMBIN TIME 18.8 secs (9.9-12.6)
[2017-04-21 05:51] LABS: CALCIUM 7.4 mg/dL (8.5-10.3); CREATININE 0.9 mg/dL (0.4-1.0); POTASSIUM 3.5 mmol/L (3.5-5.0)
[2017-04-21] MEDS: GABAPENTIN 300 MG CAPSULE PO SCH ×3 (06:04→20:33)
[2017-04-21] MEDS: PANTOPRAZOLE 40 MG TABLET PO SCH (06:04)
[2017-04-21] MEDS: SODIUM CHLORIDE FLUSH 0.9% 10 ML SYRINGE IVP SCH ×3 (06:05→20:34)
[2017-04-21] MEDS: SACCHAROMYCES BOULARDII 250 MG CAPSULE PO SCH (08:40)
[2017-04-21] MEDS: ALLOPURINOL 100 MG TABLET PO SCH (08:41)
[2017-04-21] MEDS: DOCUSATE SODIUM 250 MG CAPSULE PO SCH (08:41)
[2017-04-21] MEDS: CITALOPRAM 10 MG TABLET PO SCH (08:41)
[2017-04-21] MEDS: cefTRIAXone 2 GM in SODIUM CHLORIDE 0.9% MINIBAG 100 ML IV SCH (08:41)
[2017-04-21] MEDS: POLYETHYLENE GLYCOL 3350 17 GM PACKET PO SCH (08:42)
[2017-04-21] MEDS: SENNA 8.6 MG TABLET PO SCH (08:42)
[2017-04-21 09:45] LABS: IRON < 6 ug/dL (28-170); TOTAL IRON BINDING CAPACITY 182 ug/dL (250-450); TRANSFERRIN 130 mg/dL (192-382)
[2017-04-21] MEDS: AZITHROMYCIN INJ 500 MG in SODIUM CHLORIDE 0.9% 250 ML IV SCH (09:49)
[2017-04-21] MEDS: METOPROLOL SUCCINATE 25 MG TABLET PO SCH ×2 (09:49→20:34)
[2017-04-21] MEDS: FERROUS SULFATE 325 MG TABLET PO SCH ×2 (13:38→16:51)
[2017-04-21] MEDS: WARFARIN 5 MG TABLET PO SCH (13:39)
--- NOTE | 2017-04-21 18:42 | PROVIDER PROGRESS NOTE ---
Assessment/Plan - Problem List (1) Community acquired pneumonia Assessment/Plan: Patient presented with symptoms of atypical pneumonia with nausea, vomiting, fever and generalized weakness. She did have some increased sneezing but no shortness of breath and no cough. Her CT abd and CXR did show findings consistent with pneumonia Patient initially thought to have atypical pneumonia but now appears to have more typical symptoms Patient having coughing, hypoxia and increased shortness of breath Improved today but still weak and short of breath with exertion, cough improved Will place on Ceftriaxone and azithromycin IV day 3 Supplemental O2 Wean O2 Patient is weak will have PT assess for possible rehab or home pT (2) Intractable nausea and vomiting Conclusion/Plan: Likely secondary to atypical pneumonia or viral gastroenteritis IVFs Antiemietics IV Resolved (3) Hypertension Conclusion/Plan: BP controlled will continue home meds Qualifiers: Hypertension type: essential hypertension Qualified Code(s): I10 - Essential (primary) hypertension (4) Hyperlipidemia Conclusion/Plan: Continue home statin (5) History of pulmonary embolism Conclusion/Plan: Continue coumadin INR subtherapeutic INR down to 1.7 today Coumadin dose increased yesterday Monitor (6) Subtherapeutic international normalized ratio (INR) Conclusion/Plan: Monitor INR INR down to 1.7 today Adjust coumadin dose as needed - Current Meds Current Meds: Current Medications Generic Name Dose Route Start Last Admin Trade Name Martita PRN Reason Stop Dose Admin Allopurinol 200 mg 04/20/17 09:00 04/21/17 08:41 Zyloprim PO 200 mg DAILY LATANYA Administration Citalopram Hydrobromide 20 mg 04/20/17 09:00 04/21/17 08:41 Celexa PO 20 mg DAILY LATANYA Administration Docusate Sodium 250 - 500 mg 04/21/17 09:00 04/21/17 08:41 Colace 250mg Capsule PO 500 mg DAILY LATANYA Administration Ferrous Sulfate 325 mg 04/21/17 12:00 04/21/17 16:51 Feosol PO 325 mg BIDWM LATANYA Administration Gabapentin 600 mg 04/19/17 22:00 04/21/17 13:38 Neurontin PO 600 mg TID LATANYA Administration Sodium Chloride 1,000 mls @ 100 mls/hr 04/19/17 16:30 04/21/17 04:13 Normal Saline 0.9% IV 100 mls/hr .Q10H LATANYA Administration Azithromycin 500 mg/ Sodium 250 mls @ 250 mls/hr 04/19/17 17:00 04/21/17 09:49 Chloride IV 250 mls/hr DAILY@1000 LATANYA Administration Acetaminophen 100 mls @ 400 mls/hr 04/19/17 18:00 04/20/17 16:10 Ofirmev IV 400 mls/hr Q6HR PRN Administration PAIN Ceftriaxone Sodium 2 gm/ 100 mls @ 200 mls/hr 04/20/17 14:45 04/21/17 08:41 Sodium Chloride IV 200 mls/hr DAILY LATANYA Administration Metoprolol Succinate 25 mg 04/19/17 21:00 04/21/17 09:49 Toprol Xl PO Not Given BID LATANYA Ondansetron HCl 4 mg 04/19/17 14:32 04/19/17 21:14 Zofran Inj IVP 4 mg Q6HR PRN Administration Nausea / Vomiting Pantoprazole Sodium 40 mg 04/20/17 07:00 04/21/17 06:04 Protonix PO 40 mg QDAC LATANYA Administration Polyethylene Glycol 17 gm 04/20/17 09:00 04/21/17 08:42 Miralax PO 17 gm DAILY LATANYA Administration Pravastatin Sodium 80 mg 04/19/17 21:00 04/20/17 21:26 Pravachol PO 80 mg QPM LATANYA Administration Saccharomyces Boulardii 250 mg 04/19/17 17:00 04/21/17 08:40 Florastor PO 250 mg BIDWM LATANYA Administration Senna 8.6 - 17.2 mg 04/21/17 09:00 04/21/17 08:42 Senokot PO 17.2 mg DAILY LATANYA Administration Sodium Chloride 10 ml 04/19/17 14:32 04/19/17 16:08 Normal Saline Flush 0.9% IVP 10 ml PRN PRN Administration NEEDED PER PROVIDER ORDERS Sodium Chloride 10 ml 04/19/17 22:00 04/21/17 13:40 Normal Saline Flush 0.9% IVP 10 ml Q8HR LATANYA Administration Warfarin Sodium 10 mg 04/21/17 14:00 04/21/17 13:39 Coumadin PO 10 mg QDWARFARIN LATANYA Administration - Lab Result Lab results reviewed: Yes Fish Bone Diagrams: 04/21/17 05:00 04/21/17 05:00 - EKG Results EKG Interpreted Independently: Yes - Diagnostic Imaging Results Diagnostic Imaging Results: positive: Final report reviewed - Additional Planning Condition/Complexity: Improved My Orders: My Active Orders 04/21/17 Evaluate and Treat PT [PT] Routine 04/21/17 09:00 Docusate Sodium 250Mg Capsule [Colace 250Mg Capsule] 250 - 500 mg PO DAILY Senna [Senokot] 8.6 - 17.2 mg PO DAILY 04/21/17 12:00 Ferrous Sulfate [Feosol] 325 mg PO BIDWM 04/21/17 14:00 Warfarin [Coumadin] 10 mg PO QDWARFARIN Consult/Specialty: PT Plan Discussed with:: Patient, Family Time Spent: 31-60 minutes Subjective - Subjective Patient Reports: Feeling Better (Patient feels better. SOA improved but still gets SOA with exertion. She is weak.) Nursing Reports: No Complaints Objective Vital Signs: Vital Signs - 24 hr 04/20/17 04/20/17 04/21/17 19:30 21:19 00:45 Temperature 36.5 C 36.7 C Heart Rate 70 Heart Rate [ 52 L 54 L Brachial] Respiratory 16 16 16 Rate Blood Pressure 107/70 [Left Brachial artery] Blood Pressure 115/68 [Right Brachial artery] O2 Saturation 96 100 04/21/17 04/21/17 04/21/17 08:00 09:27 10:10 Temperature 36.9 C 37.1 C Heart Rate Heart Rate [ 59 L 62 89 Brachial] Respiratory 20 22 18 Rate Blood Pressure 113/74 133/71 H [Left Brachial artery] Blood Pressure [Right Brachial artery] O2 Saturation 95 97 94 04/21/17 04/21/17 11:00 17:42 Temperature 37.5 C Heart Rate Heart Rate [ 68 65 Brachial] Respiratory 18 18 Rate Blood Pressure 112/73 [Left Brachial artery] Blood Pressure [Right Brachial artery] O2 Saturation 97 94 Oxygen O2 Source Room air I&O (Last 24 Hrs): Intake and Output Totals x24h 04/19/17 04/20/17 04/21/17 23:59 23:59 23:59 Intake Total 1163 3546 2526 Output Total 350 Balance 1163 3486 2526 General: Alert, Oriented x3, Cooperative, No acute distress HEENT: Atraumatic, PERRLA, EOMI, Mucous membr. moist/pink Neck: Supple, No JVD, No thyromegaly, +2 carotid pulse wo bruit, No LAD Lymphatic: no adenopathy Neuro: Alert, Non Focal, CN 2-12 Grossly Intact, Oriented Times 3 Cardiovascular: Regular rate, Normal S1, Normal S2, No murmurs Respiratory: Chest non-tender, No respiratory distress, Rhonchi (IMproved) Abdomen: Normal bowel sounds, Soft, No tenderness, No hepatospenomegaly, No masses Extremities: No clubbing, No cyanosis, No edema, Normal pulses, No tenderness/ swelling Skin: No rashes, No breakdown - Results Results: Laboratory Results WBC 6.5 x10^3/uL (4.8-10.8) 04/21/17 05:00 RBC 2.62 10^6/uL (4.20-5.40) L 04/21/17 05:00 Hgb 9.2 g/dL (12.0-16.0) L 04/21/17 05:00 Hct 28.2 % (37.0-47.0) L 04/21/17 05:00 MCV 107.8 fL (81.0-99.0) H 04/21/17 05:00 MCH 35.3 pg (27.0-31.0) H 04/21/17 05:00 MCHC 32.7 g/dL (32.0-36.0) 04/21/17 05:00 RDW 15.3 % (12.0-15.0) H 04/21/17 05:00 Plt Count 194 10^3/uL (130-450) 04/21/17 05:00 MPV 7.9 fL (7.9-10.8) 04/21/17 05:00 Neut # 5.4 10^3/uL (1.5-6.6) 04/21/17 05:00 Lymph # 0.5 10^3/uL (1.5-3.5) L 04/21/17 05:00 [place] # 0.4 10^3/uL (0.0-1.0) 04/21/17 05:00 Eos # 0.1 10^3/uL (0.0-0.7) 04/21/17 05:00 Baso # 0.0 10^3/uL (0.0-0.1) 04/21/17 05:00 Absolute Nucleated RBC 0.00 x10^3/uL 04/21/17 05:00 Nucleated RBCs 0.0 /100WBC 04/21/17 05:00 PT 18.8 secs (9.9-12.6) H 04/21/17 05:00 INR 1.7 (0.8-1.2) H 04/21/17 05:00 Sodium 138 mmol/L (135-145) 04/21/17 05:00 Potassium 3.5 mmol/L (3.5-5.0) 04/21/17 05:00 Chloride 108 mmol/L (101-111) 04/21/17 05:00 Carbon Dioxide 23 mmol/L (21-32) 04/21/17 05:00 Anion Gap 7.0 (6-13) 04/21/17 05:00 BUN 14 mg/dL (6-20) 04/21/17 05:00 Creatinine 0.9 mg/dL (0.4-1.0) 04/21/17 05:00 Estimated GFR (MDRD) 61 (>89) L 04/21/17 05:00 Glucose 98 mg/dL (70-100) 04/21/17 05:00 Lactic Acid 1.1 mmol/L (0.5-2.2) 04/19/17 10:40 Calcium 7.4 mg/dL (8.5-10.3) L 04/21/17 05:00 Iron < 6 ug/dL (28-170) L 04/21/17 05:37 TIBC 182 ug/dL (250-450) L 04/21/17 05:37 % Saturation 3 % (20-50) L 04/21/17 05:37 Transferrin 130 mg/dL (192-382) L 04/21/17 05:37 Ferritin 292.0 ng/mL (11.0-306.8) 04/21/17 05:37 Total Bilirubin 0.8 mg/dL (0.2-1.0) 04/19/17 10:40 AST 24 IU/L (10-42) 04/19/17 10:40 ALT 12 IU/L (10-60) 04/19/17 10:40 Alkaline Phosphatase 37 IU/L (42-121) L 04/19/17 10:40 Total Protein 6.1 g/dL (6.7-8.2) L 04/19/17 10:40 Albumin 3.2 g/dL (3.2-5.5) 04/19/17 10:40 Globulin 2.9 g/dL (2.1-4.2) 04/19/17 10:40 Albumin/Globulin Ratio 1.1 (1.0-2.2) 04/19/17 10:40 Lipase 21 U/L (22-51) L 04/19/17 10:40 Vitamin B12 498 pg/mL (180-914) 04/21/17 05:37 Folate 36.00 ng/mL (5.90 - >24.8) 04/21/17 05:37 Urine Color YELLOW 04/19/17 12:45 Urine Clarity CLEAR (CLEAR) 04/19/17 12:45 Urine pH 8.0 PH (5.0-7.5) H 04/19/17 12:45 Ur Specific [place] 1.010 (1.002-1.030) 04/19/17 12:45 Urine Protein 100 mg/dL (NEGATIVE) H 04/19/17 12:45 Urine Glucose (UA) NEGATIVE mg/dL (NEGATIVE) 04/19/17 12:45 Urine Ketones TRACE mg/dL (NEGATIVE) 04/19/17 12:45 Urine Occult Blood NEGATIVE (NEGATIVE) 04/19/17 12:45 Urine Nitrite NEGATIVE (NEGATIVE) 04/19/17 12:45 Urine Bilirubin NEGATIVE (NEGATIVE) 04/19/17 12:45 Urine Urobilinogen 1 (NORMAL) E.U./dL (NORMAL) 04/19/17 12:45 Ur Leukocyte Esterase NEGATIVE (NEGATIVE) 04/19/17 12:45 Urine RBC 0-5 /HPF (0-5) 04/19/17 12:45 Urine WBC 0-3 /HPF (0-5) 04/19/17 12:45 Ur Epithelial Cells RARE Renal Tubular /HPF (<= Few) 04/19/17 12:45 Ur Squamous Epith Cells FEW Squamous (<= Few) 04/19/17 12:45 Urine Bacteria None Seen /HPF (None Seen) 04/19/17 12:45 Ur Microscopic Review INDICATED 04/19/17 12:45 Urine Culture Comments NOT INDICATED 04/19/17 12:45
[2017-04-21] MEDS: PRAVASTATIN 40 MG TABLET PO SCH (20:34)
[2017-04-22] MEDS: SODIUM CHLORIDE 0.9% 1,000 ML IV SCH ×2 (05:17→13:46)
[2017-04-22] MEDS: GABAPENTIN 300 MG CAPSULE PO SCH ×2 (05:17→13:45)
[2017-04-22] MEDS: ACETAMINOPHEN 1,000 MG/100 ML 100 ML IV PRN (05:28)
[2017-04-22 06:00] LABS: BASOPHILS # (AUTO) 0.1 10^3/uL (0.0-0.1); BASOPHILS % (AUTO) 1.3 %; EOSINOPHILS # (AUTO) 0.2 10^3/uL (0.0-0.7); EOSINOPHILS % (AUTO) 3.3 %; HCT - HEMATOCRIT 24.8 % (37.0-47.0); HGB - HEMOGLOBIN 8.3 g/dL (12.0-16.0); LYMPHOCYTES # (AUTO) 0.7 10^3/uL (1.5-3.5); LYMPHOCYTES % (AUTO) 13.3 %; MEAN CORPUSCULAR HEMOGLOBIN 35.6 pg (27.0-31.0); MEAN CORPUSCULAR HGB CONC 33.4 g/dL (32.0-36.0); MEAN CORPUSCULAR VOLUME 106.7 fL (81.0-99.0); MEAN PLATELET VOLUME 7.7 fL (7.9-10.8); MONOCYTES # (AUTO) 0.5 10^3/uL (0.0-1.0); NEUTROPHILS # (AUTO) 3.7 10^3/uL (1.5-6.6); NEUTROPHILS % (AUTO) 72.1 %; RED BLOOD COUNT 2.33 10^6/uL (4.20-5.40); RED CELL DISTRIBUTION WIDTH 15.3 % (12.0-15.0); UNCORRECTED WHITE BLOOD COUNT 5.1 x10^3/uL; WHITE BLOOD COUNT 5.1 x10^3/uL (4.8-10.8)
[2017-04-22 06:06] LABS: INR 3.8 (0.8-1.2)
[2017-04-22 06:10] LABS: CALCIUM 7.2 mg/dL (8.5-10.3); CREATININE 0.9 mg/dL (0.4-1.0); POTASSIUM 3.3 mmol/L (3.5-5.0)
[2017-04-22] MEDS: PANTOPRAZOLE 40 MG TABLET PO SCH (06:12)
[2017-04-22] MEDS: SODIUM CHLORIDE FLUSH 0.9% 10 ML SYRINGE IVP SCH ×2 (06:13→13:45)
[2017-04-22] MEDS: cefTRIAXone 2 GM in SODIUM CHLORIDE 0.9% MINIBAG 100 ML IV SCH (09:07)
[2017-04-22] MEDS: FERROUS SULFATE 325 MG TABLET PO SCH (09:07)
[2017-04-22] MEDS: ALLOPURINOL 100 MG TABLET PO SCH (09:07)
[2017-04-22] MEDS: POLYETHYLENE GLYCOL 3350 17 GM PACKET PO SCH (09:08)
[2017-04-22] MEDS: DOCUSATE SODIUM 250 MG CAPSULE PO SCH (09:08)
[2017-04-22] MEDS: CITALOPRAM 10 MG TABLET PO SCH (09:08)
[2017-04-22] MEDS: SENNA 8.6 MG TABLET PO SCH (09:09)
[2017-04-22] MEDS: METOPROLOL SUCCINATE 25 MG TABLET PO SCH (09:11)
[2017-04-22] MEDS: SACCHAROMYCES BOULARDII 250 MG CAPSULE PO SCH (09:22)
[2017-04-22] MEDS: AZITHROMYCIN INJ 500 MG in SODIUM CHLORIDE 0.9% 250 ML IV SCH (10:07)
[2017-04-22 11:41] VITALS: BP 94/62
[2017-04-22] MEDS: WARFARIN 5 MG TABLET PO SCH (13:46)
--- NOTE | 2017-04-22 14:33 | Discharge Plan ---
Discharge Plan Disposition: Home, Self Care Condition: Good Prescriptions: Cefuroxime Axetil [Ceftin] 250 mg PO Q12H #14 tablet Diet: Regular Activity Restrictions: Activity as Tolerated Shower Restrictions: No Driving Restrictions: No (needs to be cleared by PCP if needed) Weight Bearing: Full Weight Additional Instructions or Follow Up instructions: Finish your antibiotic pills. Follow up with your PCP in the next 2 weeks +/- Afternoon nap is suggested the next 7-10 days\ Enjoy each day... Thank you, Dr. Corral No Smoking: If you smoke, Please STOP! Call for help. Follow-up with: Jc Cameron MD [Primary Care Provider] - 2 Weeks
--- NOTE | 2017-04-22 21:21 | DISCHARGE SUMMARY ---
DATE OF ADMISSION: 04/19/2017 DATE OF DISCHARGE: 04/22/2017 PRIMARY CARE PHYSICIAN: Jc Cameron MD ADMISSION DIAGNOSES: 1. Community-acquired pneumonia. 2. Intractable nausea and vomiting. 3. Hypertension. 4. Hyperlipidemia. 5. History of pulmonary embolus. 6. Subtherapeutic INR. DISCHARGE DIAGNOSES: 1. Community-acquired pneumonia, symptomatic improvement. 2. Intractable nausea and vomiting, resolved. 3. Hypertension, controlled. 4. Hyperlipidemia on continued statin. 5. History of pulmonary embolus, on Coumadin, supratherapeutic, though with dose adjustment. SPECIAL PROCEDURES: CT abdomen and pelvis: Impression: 1. Negative for bowel obstruction or acute inflammatory changes or ascites. 2. No renal stone or hydronephrosis. 3. Patchy moderate sized pulmonary opacity in lingula, minimal left pleural effusion, suggestion of nonspecific infiltrate or pneumonia. 4. Coronary artery disease, borderline to mild cardiomegaly, negative for congestive heart failure. 5. Moderate-sized hiatal hernia. HOSPITAL COURSE AND MANAGEMENT: Initial presentation and hospital emergency department evaluation, and hospital list plan is well described in the history and physical, see copy of same. SUMMARY: The patient is a 76-year-old female with past medical history significant for 2 pulmonary emboli and DVT on Coumadin, hypertension, hyperlipidemia, history of Clostridium difficile 5 years ago, history of MRSA pneumonia and osteoporosis, as well as osteoarthritis who presents to emergency department with chief complaint of nausea and vomiting. This has been going on last 2 days. The patient was febrile in the emergency department to 38.6. She had a CT abdomen and pelvis, which was nondiagnostic. She did have a patchy moderate size pneumonia, opacities with small pleural effusion. Chest x-ray showed both right and left lower lobe pneumonias and she was started on community-acquired antibiotics. She responded promptly over the next couple of days. She defervesced, no further fevers. She was very weak initially and last couple of days her nausea and vomiting resolved. Hypertension was controlled and continued on her statin in the hospital. The patient was then discharged home. PHYSICAL EXAMINATION: On the day of discharge: VITAL SIGNS 36.6, 55, 117/72, 94/62 room air 95% O2 saturation. EYES: EOM within normal limits. PERRL, nonicteric. MOUTH AND THROAT: Moist mucous membranes. No other pathology noted. NECK: No lymphadenopathy, no thyromegaly. CHEST WALL: Nontender. Symmetric. No breast exam done. HEART: Sinus bradycardia. No murmur, rubs, clicks. LUNGS: Clear, good air movement bilaterally. ABDOMEN: Thick abdominal wall, soft, nontender. EXTREMITIES: Without edema. NEUROLOGICAL: Cognitive intact. Cranial nerves intact. Motor intact. LABORATORY DATA: White count 5.1, 8 and 25 hemoglobin and hematocrit, 106 MCV, 189 platelets. The patient's INR was up from 1.7 on the th to 3.8 most likely from the macrolide antibiotic. Sodium 134, potassium 3.3, chloride 108, CO2 of 18, BUN 12. Creatinine 0.9, glucose 112, calcium 7.2, but she had an albumin of 3.2 consistent with her calcium on entrance of 8.1 adjusted. She had an iron of less than 6, TIBC 182, saturation 3, transferrin 133, ferritin 292. She has a normal B12 of 498 and folate of 36. DISCHARGE ALLERGIES: LATEX AND PENICILLIN. HOME MEDICATIONS: 1. Allopurinol 200 mg a day. 2. Lasix 20 mg every 48 hours. 3. Citalopram 20 mg a day. 4. Alendronate 70 mg a week. 5. Gabapentin 600 mg t.i.d. 6. Pravastatin 80 mg at bedtime. 7. Potassium 10 mEq daily. 8. Omeprazole 20 mg a day. 9. Hold warfarin for 2 days given INR and then adjust dose per recommendation. 10. Metoprolol 25 mg b.i.d. 11. Cefuroxime axetil 250 mg q.12h. for another 7 days. The patient is to followup with Dr. Cameron in the next 2 weeks. If she gets worse, she is to return here. The patient normally is very active, gardens 8 hours a day. She was told to take naps for next 7-10 days. Time spent in discharge activities 40 minutes and she was examined on the day of discharge. JOB #: [id number] EXT JOB #:[id number] [email or web address]
[2017-04-26] MEDS ORDERED: ALENDRONATE 70 MG TABLET PO SCH (07:00)
== END 2017-04-22 16:00 | disposition home or self-care (01) | DRG 195 ==
LOC: EDUNIT# → ED 10:25 → MS 14:33
PROVIDERS: ADMIT Internal Medicine; ATTEND Internal Medicine
DX: J18.9 Pneumonia, unspecified organism (principal); I11.0 Hypertensive heart disease with heart failure; I50.9 Heart failure, unspecified; R09.02 Hypoxemia; I11.9 Hypertensive heart disease without heart failure; E78.5 Hyperlipidemia, unspecified; K21.9 Gastro-esophageal reflux disease without esophagitis; Z86.711 Personal history of pulmonary embolism; Z79.01 Long term (current) use of anticoagulants; Z86.718 Personal history of other venous thrombosis and embolism; Z86.14 Personal history of Methicillin resistant Staphylococcus aureus infection; Z91.81 History of falling
CPT/HCPCS: 36415; 71020; 74176; 80048; 80053; 81001; 81003; 82607; 82728; 82746; 83540; 83605; 83690; 84466; 85025; 85610; 87040; 87086; 87449; 87640; 96365; 96375; 99284

== ENCOUNTER 2017-04-24 07:27 | Outpatient (CLI) | payer MEDICARE, OTHER | END 2017-04-24 07:28 | disposition home or self-care (01) | LOC: LAB.F 07:27 | PROVIDERS: ATTEND Family Medicine | DX: Z79.01 Long term (current) use of anticoagulants (principal) | CPT/HCPCS: 85610 ==

== ENCOUNTER 2017-04-25 12:53 | Outpatient (CLI) | payer MEDICARE, OTHER | END 2017-04-25 12:54 | disposition home or self-care (01) | LOC: LAB.F 12:53 | PROVIDERS: ATTEND Family Medicine | DX: Z79.01 Long term (current) use of anticoagulants (principal) | CPT/HCPCS: 85610 ==

== ENCOUNTER 2017-04-30 12:45 | Outpatient (CLI) | payer MEDICARE, OTHER | END 2017-04-30 12:46 | disposition home or self-care (01) | LOC: LAB.F 12:45 | PROVIDERS: ATTEND Family Medicine | DX: Z79.01 Long term (current) use of anticoagulants (principal) | CPT/HCPCS: 85610 ==

== ENCOUNTER 2017-05-05 15:26 | Outpatient (CLI) | payer MEDICARE, OTHER | END 2017-05-05 15:27 | disposition home or self-care (01) | LOC: LAB.F 15:26 | PROVIDERS: ATTEND Family Medicine | DX: Z79.01 Long term (current) use of anticoagulants (principal) | CPT/HCPCS: 85610 ==

== ENCOUNTER 2017-06-19 07:54 | Outpatient (CLI) | payer MEDICARE, OTHER | END 2017-06-19 07:55 | disposition home or self-care (01) | LOC: LAB.F 07:54 | PROVIDERS: ATTEND Family Medicine | DX: Z79.01 Long term (current) use of anticoagulants (principal) | CPT/HCPCS: 85610 ==

== ENCOUNTER 2017-07-24 08:57 | Outpatient (CLI) | payer MEDICARE, OTHER | END 2017-07-24 08:58 | disposition home or self-care (01) | LOC: LAB.F 08:57 | PROVIDERS: ATTEND Family Medicine | DX: Z79.01 Long term (current) use of anticoagulants (principal) | CPT/HCPCS: 85610 ==

== ENCOUNTER 2017-07-25 13:18 | Outpatient (CLI) | payer MEDICARE, OTHER | END 2017-07-25 13:19 | disposition home or self-care (01) | LOC: LAB.F 13:18 | PROVIDERS: ATTEND Family Medicine | DX: Z79.01 Long term (current) use of anticoagulants (principal) | CPT/HCPCS: 85610 ==

== ENCOUNTER 2017-07-31 07:03 | Outpatient (CLI) | payer MEDICARE, OTHER | END 2017-07-31 07:04 | disposition home or self-care (01) | LOC: LAB.F 07:03 | PROVIDERS: ATTEND Family Medicine | DX: Z79.01 Long term (current) use of anticoagulants (principal) | CPT/HCPCS: 85610 ==

== ENCOUNTER 2017-08-04 07:04 | Outpatient (CLI) | payer MEDICARE, OTHER | END 2017-08-04 07:05 | disposition home or self-care (01) | LOC: LAB.F 07:04 | PROVIDERS: ATTEND Family Medicine | DX: Z79.01 Long term (current) use of anticoagulants (principal) | CPT/HCPCS: 85610 ==

== ENCOUNTER 2017-08-13 09:35 | Outpatient (CLI) | payer MEDICARE, OTHER | END 2017-08-13 09:36 | disposition home or self-care (01) | LOC: LAB.F 09:35 | PROVIDERS: ATTEND Family Medicine | DX: Z79.01 Long term (current) use of anticoagulants (principal) | CPT/HCPCS: 85610 ==

== ENCOUNTER 2017-10-09 07:07 | Outpatient (CLI) | payer MEDICARE, OTHER | END 2017-10-09 07:08 | disposition home or self-care (01) | LOC: LAB.F 07:07 | PROVIDERS: ATTEND Family Medicine | DX: Z79.01 Long term (current) use of anticoagulants (principal) | CPT/HCPCS: 85610 ==

== ENCOUNTER 2017-11-06 08:38 | Outpatient (CLI) | payer MEDICARE, OTHER | END 2017-11-06 08:39 | disposition home or self-care (01) | LOC: LAB.F 08:38 | PROVIDERS: ATTEND Family Medicine | DX: Z79.01 Long term (current) use of anticoagulants (principal) | CPT/HCPCS: 85610 ==

== ENCOUNTER 2017-12-25 10:22 | Outpatient (CLI) | payer MEDICARE, OTHER | END 2017-12-25 10:23 | disposition home or self-care (01) | LOC: LAB.F 10:22 | PROVIDERS: ATTEND Family Medicine | DX: Z79.01 Long term (current) use of anticoagulants (principal) | CPT/HCPCS: 85610 ==

== ENCOUNTER 2018-03-17 09:31 | Outpatient (CLI) | payer MEDICARE, OTHER | END 2018-03-17 09:32 | disposition home or self-care (01) | LOC: LAB.F 09:31 | PROVIDERS: ATTEND Family Medicine | DX: Z00.00 Encounter for general adult medical examination without abnormal findings (principal) | CPT/HCPCS: 36415; 84132 ==

== ENCOUNTER 2018-03-18 11:14 | Outpatient (CLI) | payer MEDICARE, OTHER | END 2018-03-18 11:15 | disposition short-term general hospital (02) | LOC: EMS 11:14 | PROVIDERS: ATTEND Surgery | DX: R47.9 Unspecified speech disturbances (principal) | CPT/HCPCS: A0425; A0427 ==

== ENCOUNTER 2018-03-24 07:07 | Outpatient (CLI) | payer MEDICARE, OTHER | END 2018-03-24 07:08 | disposition home or self-care (01) | LOC: LAB.F 07:07 | PROVIDERS: ATTEND Family Medicine | DX: Z79.01 Long term (current) use of anticoagulants (principal) | CPT/HCPCS: 85610 ==

== ENCOUNTER 2018-05-21 08:02 | Outpatient (CLI) | payer MEDICARE, OTHER | END 2018-05-21 08:03 | disposition home or self-care (01) | LOC: LAB.F 08:02 | PROVIDERS: ATTEND Family Medicine | DX: Z79.01 Long term (current) use of anticoagulants (principal) | CPT/HCPCS: 85610 ==

== ENCOUNTER 2018-06-22 07:32 | Outpatient (CLI) | payer MEDICARE, OTHER | END 2018-06-22 07:33 | disposition home or self-care (01) | LOC: LAB.F 07:32 | PROVIDERS: ATTEND Family Medicine | DX: Z79.01 Long term (current) use of anticoagulants (principal) | CPT/HCPCS: 85610 ==

== ENCOUNTER 2018-06-24 07:27 | Outpatient (CLI) | payer MEDICARE, OTHER | END 2018-06-24 07:28 | disposition home or self-care (01) | LOC: LAB.F 07:27 | PROVIDERS: ATTEND Family Medicine | DX: Z79.01 Long term (current) use of anticoagulants (principal) | CPT/HCPCS: 85610 ==

== ENCOUNTER 2018-06-26 07:51 | Outpatient (CLI) | payer MEDICARE, OTHER | END 2018-06-26 07:52 | disposition home or self-care (01) | LOC: LAB.F 07:51 | PROVIDERS: ATTEND Family Medicine | DX: Z79.01 Long term (current) use of anticoagulants (principal) | CPT/HCPCS: 85610 ==

== ENCOUNTER 2018-07-03 07:36 | Outpatient (CLI) | payer MEDICARE, OTHER | END 2018-07-03 07:37 | disposition home or self-care (01) | LOC: LAB.F 07:36 | PROVIDERS: ATTEND Family Medicine | DX: Z79.01 Long term (current) use of anticoagulants (principal) | CPT/HCPCS: 85610 ==

== ENCOUNTER 2018-07-10 07:30 | Outpatient (CLI) | payer MEDICARE, OTHER | END 2018-07-10 07:31 | disposition home or self-care (01) | LOC: LAB.F 07:30 | PROVIDERS: ATTEND Family Medicine | DX: Z79.01 Long term (current) use of anticoagulants (principal) | CPT/HCPCS: 85610 ==

== ENCOUNTER 2018-08-06 13:35 | Outpatient (CLI) | payer MEDICARE, OTHER | END 2018-08-06 13:36 | disposition home or self-care (01) | LOC: LAB.F 13:35 | PROVIDERS: ATTEND Family Medicine | DX: Z79.01 Long term (current) use of anticoagulants (principal) | CPT/HCPCS: 85610 ==

== ENCOUNTER 2018-08-20 07:41 | Outpatient (CLI) | payer MEDICARE, OTHER | END 2018-08-20 07:42 | disposition home or self-care (01) | LOC: LAB.F 07:41 | PROVIDERS: ATTEND Family Medicine | DX: Z79.01 Long term (current) use of anticoagulants (principal) | CPT/HCPCS: 85610 ==

== ENCOUNTER 2018-09-28 07:10 | Outpatient (CLI) | payer MEDICARE, OTHER | END 2018-09-28 07:11 | disposition home or self-care (01) | LOC: LAB.F 07:10 | PROVIDERS: ATTEND Nuclear Medicine Nuclear Cardiology | DX: I48.1 Persistent atrial fibrillation (principal); Z79.01 Long term (current) use of anticoagulants; Z51.81 Encounter for therapeutic drug level monitoring | CPT/HCPCS: 85610 ==

== ENCOUNTER 2018-11-06 08:24 | Outpatient (CLI) | payer MEDICARE, OTHER | END 2018-11-06 08:25 | disposition home or self-care (01) | LOC: LAB.F 08:24 | PROVIDERS: ATTEND Nuclear Medicine Nuclear Cardiology | DX: Z79.01 Long term (current) use of anticoagulants (principal); I48.1 Persistent atrial fibrillation; Z51.81 Encounter for therapeutic drug level monitoring | CPT/HCPCS: 85610 ==

== ENCOUNTER 2019-01-05 08:00 | Outpatient (CLI) | payer MEDICARE, OTHER | END 2019-01-05 23:59 | disposition home or self-care (01) | LOC: LAB.F 08:00 | PROVIDERS: ATTEND Family Medicine | DX: Z86.718 Personal history of other venous thrombosis and embolism (principal) | CPT/HCPCS: 85610 ==

== ENCOUNTER 2019-02-18 07:27 | Outpatient (CLI) | payer MEDICARE, OTHER | END 2019-02-18 07:28 | disposition home or self-care (01) | LOC: LAB.F 07:27 | PROVIDERS: ATTEND Family Medicine | DX: Z79.01 Long term (current) use of anticoagulants (principal) | CPT/HCPCS: 85610 ==

== ENCOUNTER 2019-03-18 07:16 | Outpatient (CLI) | payer MEDICARE, OTHER | END 2019-03-18 07:17 | disposition home or self-care (01) | LOC: LAB.F 07:16 | PROVIDERS: ATTEND Family Medicine | DX: Z51.81 Encounter for therapeutic drug level monitoring (principal); Z79.01 Long term (current) use of anticoagulants | CPT/HCPCS: 85610 ==

== ENCOUNTER 2019-04-15 08:02 | Outpatient (CLI) | payer MEDICARE, OTHER | END 2019-04-15 08:03 | disposition home or self-care (01) | LOC: LAB.F 08:02 | PROVIDERS: ATTEND Family Medicine | DX: Z79.01 Long term (current) use of anticoagulants (principal) | CPT/HCPCS: 85610 ==

== ENCOUNTER 2019-05-13 07:34 | Outpatient (CLI) | payer MEDICARE, OTHER | END 2019-05-13 07:35 | disposition home or self-care (01) | LOC: LAB.S 07:34 | PROVIDERS: ATTEND Family Medicine | DX: Z79.01 Long term (current) use of anticoagulants (principal) | CPT/HCPCS: 85610 ==

== ENCOUNTER 2019-06-03 07:24 | Outpatient (CLI) | payer MEDICARE, OTHER | END 2019-06-03 07:25 | disposition home or self-care (01) | LOC: LAB.S 07:24 | PROVIDERS: ATTEND Family Medicine | DX: Z79.01 Long term (current) use of anticoagulants (principal) | CPT/HCPCS: 85610 ==

== ENCOUNTER 2019-06-10 07:18 | Outpatient (CLI) | payer MEDICARE, OTHER | END 2019-06-10 07:19 | disposition home or self-care (01) | LOC: LAB.S 07:18 | PROVIDERS: ATTEND Family Medicine | DX: Z79.01 Long term (current) use of anticoagulants (principal) | CPT/HCPCS: 85610 ==

== ENCOUNTER 2019-07-20 13:33 | Outpatient (CLI) | payer MEDICARE, OTHER ==
[2019-07-20 17:23] LABS: BASOPHILS % (AUTO) 0.7 %; EOSINOPHILS # (AUTO) 0.6 10^3/uL (0.0-0.7); EOSINOPHILS % (AUTO) 11.6 %; HGB - HEMOGLOBIN 9.4 g/dL (12.0-16.0); LYMPHOCYTES # (AUTO) 1.1 10^3/uL (1.5-3.5); LYMPHOCYTES % (AUTO) 19.7 %; MEAN CORPUSCULAR HEMOGLOBIN 33.5 pg (27.0-31.0); MEAN CORPUSCULAR HGB CONC 31.8 g/dL (32.0-36.0); MEAN CORPUSCULAR VOLUME 105.3 fL (81.0-99.0); MEAN PLATELET VOLUME 9.9 fL (7.9-10.8); MONOCYTES # (AUTO) 0.5 10^3/uL (0.0-1.0); MONOCYTES % (AUTO) 8.8 %; NEUTROPHILS # (AUTO) 3.2 10^3/uL (1.5-6.6); NEUTROPHILS % (AUTO) 58.6 %; PLT - PLATELET COUNT 185 10^3/uL (130-450); RED BLOOD COUNT 2.81 10^6/uL (4.20-5.40); RED CELL DISTRIBUTION WIDTH 14.4 % (12.0-15.0); WHITE BLOOD COUNT 5.4 x10^3/uL (4.8-10.8)
== END 2019-07-20 13:34 | disposition home or self-care (01) ==
LOC: LAB.S 13:33
PROVIDERS: ATTEND Family Medicine
DX: K92.2 Gastrointestinal hemorrhage, unspecified (principal); Z79.01 Long term (current) use of anticoagulants
CPT/HCPCS: 36415; 85025; 85610

== ENCOUNTER 2019-09-02 07:22 | Outpatient (CLI) | payer MEDICARE, OTHER | END 2019-09-02 07:23 | disposition home or self-care (01) | LOC: LAB.S 07:22 | PROVIDERS: ATTEND Family Medicine | DX: Z79.01 Long term (current) use of anticoagulants (principal) | CPT/HCPCS: 85610 ==

== ENCOUNTER 2019-09-23 10:12 | Outpatient (CLI) | payer MEDICARE, OTHER | END 2019-09-23 10:13 | disposition home or self-care (01) | LOC: LAB.S 10:12 | PROVIDERS: ATTEND Family Medicine | DX: Z79.01 Long term (current) use of anticoagulants (principal) | CPT/HCPCS: 85610 ==

== ENCOUNTER 2019-11-04 13:24 | Outpatient (CLI) | payer MEDICARE, OTHER ==
[2019-11-04 20:15] LABS: BASOPHILS # (AUTO) 0.1 10^3/uL (0.0-0.1); BASOPHILS % (AUTO) 1.7 %; EOSINOPHILS # (AUTO) 0.3 10^3/uL (0.0-0.7); EOSINOPHILS % (AUTO) 6.6 %; HGB - HEMOGLOBIN 10.2 g/dL (12.0-16.0); LYMPHOCYTES # (AUTO) 1.2 10^3/uL (1.5-3.5); LYMPHOCYTES % (AUTO) 22.2 %; MEAN CORPUSCULAR HEMOGLOBIN 35.2 pg (27.0-31.0); MEAN CORPUSCULAR HGB CONC 32.7 g/dL (32.0-36.0); MEAN CORPUSCULAR VOLUME 107.6 fL (81.0-99.0); MEAN PLATELET VOLUME 10.3 fL (7.9-10.8); MONOCYTES # (AUTO) 0.5 10^3/uL (0.0-1.0); MONOCYTES % (AUTO) 9.1 %; NEUTROPHILS # (AUTO) 3.1 10^3/uL (1.5-6.6); NEUTROPHILS % (AUTO) 60.2 %; PLT - PLATELET COUNT 223 10^3/uL (130-450); RED CELL DISTRIBUTION WIDTH 13.9 % (12.0-15.0); WHITE BLOOD COUNT 5.2 x10^3/uL (4.8-10.8)
[2019-11-04 20:21] LABS: INR 2.1 (0.8-1.2)
[2019-11-04 20:26] LABS: CALCIUM 9.4 mg/dL (8.5-10.3); CREATININE 1.1 mg/dL (0.4-1.0)
[2019-11-04 20:39] LABS: HB2 TOTAL 10.1 g/dL; HEMOGLOBIN A1C 0.39 g/dL; HEMOGLOBIN A1C % 5.7 % (4.6-6.2)
== END 2019-11-04 13:25 | disposition home or self-care (01) ==
LOC: LAB.S 13:24
PROVIDERS: ATTEND Family Medicine
DX: Z01.818 Encounter for other preprocedural examination (principal); Z79.01 Long term (current) use of anticoagulants; D64.9 Anemia, unspecified; Z86.718 Personal history of other venous thrombosis and embolism
CPT/HCPCS: 36415; 80048; 83036; 85025; 85610

== ENCOUNTER 2019-12-08 10:45 | Outpatient (CLI) | payer MEDICARE, OTHER | END 2019-12-08 10:46 | disposition home or self-care (01) | LOC: LAB.S 10:45 | PROVIDERS: ATTEND Family Medicine | DX: Z79.01 Long term (current) use of anticoagulants (principal) | CPT/HCPCS: 85610 ==

== ENCOUNTER 2019-12-22 08:41 | Outpatient (CLI) | payer MEDICARE, OTHER | END 2019-12-22 08:42 | disposition home or self-care (01) | LOC: LAB.S 08:41 | PROVIDERS: ATTEND Family Medicine | DX: Z79.01 Long term (current) use of anticoagulants (principal) | CPT/HCPCS: 85610 ==

== ENCOUNTER 2020-01-07 08:58 | Inpatient (IN) | payer MEDICARE, OTHER ==
[2020-01-07] MEDS ORDERED: FAMOTIDINE 20 MG/2 ML VIAL IVP STA (09:31)
[2020-01-07] MEDS ORDERED: ONDANSETRON 4 MG/2 ML VIAL IVP STA (09:31)
[2020-01-07] MEDS ORDERED: SODIUM CHLORIDE 0.9% 1,000 ML IV ONE (09:31)
--- NOTE | 2020-01-07 09:34 | ED Physician Documentation ---
PD HPI NVD - Stated complaint Stated Complaint: FLU SYMPTOMS - Chief complaint Chief Complaint: Abd Pain - History obtained from History obtained from: Patient, Family (son) - History of Present Illness Timing - onset: How many days ago (2) Timing - duration: Days (2) Timing - details: Gradual onset, Still present, Waxing and waning Associated symptoms: Fever (100.2 the past 2 days), Loss of appetite, Other (nausea and dry heaving for 2 days, more at night, seems better during the day. Today with general weakness and less interaction.). No: Weight loss Contributing factors: No: Sick contact, Bad food, Travel, Recent antibiotics Similar symptoms before: Has not had sx before Review of Systems Constitutional: reports: Fever, Chills, Myalgias, Fatigue Nose: reports: Congestion. denies: Rhinorrhea / runny nose Throat: denies: Sore throat Cardiac: denies: Chest pain / pressure Respiratory: reports: Cough (mild). denies: Dyspnea GI: reports: Abdominal Pain (intermittent cramping), Nausea, Vomiting. denies: Diarrhea, Hematemesis, Bloody / black stool : denies: Dysuria, Frequency Musculoskeletal: denies: Neck pain, Back pain Neurologic: reports: Generalized weakness, Altered mental status (less alert today, per son). denies: Near syncope PD PAST MEDICAL HISTORY - Past Medical History Cardiovascular: Hypertension GI: GERD, C.difficile Psych: Anxiety Musculoskeletal: Osteoarthritis - Past Surgical History Past Surgical History: Yes Ortho: Rotator cuff repair, Shoulder arthroplasty - Present Medications Home Medications: Ambulatory Orders Medication Instructions Recorded Confirmed Furosemide [Lasix] 20 mg PO Q48H 07/14/13 04/19/17 Methylprednisolone [Medrol] 8 mg PO 07/14/13 07/14/13 Metoprolol Succinate [Toprol Xl] 25 mg PO BID 07/14/13 07/14/13 Potassium Chloride 10 meq PO DAILYWM 07/14/13 04/19/17 Warfarin Sodium [Coumadin] 5 mg PO 07/14/13 07/14/13 Alendronate Sodium 70 mg PO .WEEKLY 04/19/17 04/19/17 Citalopram Hydrobromide 20 mg PO DAILY 04/19/17 04/19/17 [Citalopram HBr] Gabapentin 600 mg PO TID 04/19/17 04/19/17 Omeprazole 20 mg PO QDAC 04/19/17 04/19/17 Pravastatin Sodium 80 mg PO QPM 04/19/17 04/19/17 allopurinoL [Allopurinol] 200 mg PO DAILY 04/19/17 04/19/17 cefUROXime axetiL [Ceftin] 250 mg PO Q12H #14 tablet 04/22/17 - Allergies Allergies/Adverse Reactions: Allergies Allergy/AdvReac Type Severity Reaction Status Date / Time latex Allergy Unknown Verified 01/07/20 09:27 Penicillins Allergy anaphylaxis Verified 01/07/20 09:27 - Social History Does the pt smoke?: No Smoking Status: Former smoker Does the pt drink ETOH?: Yes Does the pt have substance abuse?: No - POLST Patient has POLST: No POLST Status: Full Code PD ED PE NORMAL - Vitals Vital signs reviewed: Yes - General General: No acute distress, Well developed/nourished. No: Alert and oriented X 3 (able to answer questions, has eyes closed mostly. Not spontaneously talking. ) - HEENT HEENT: Pharynx benign. No: Moist mucous membranes - Neck Neck: Supple, no meningeal sign, No adenopathy - Cardiac Cardiac: RRR, Other (1/6 murmur left chest) - Respiratory Respiratory: No respiratory distress, Clear bilaterally - Abdomen Abdomen: Normal bowel sounds, Soft, Non distended, No organomegaly, Other (Tender diffusely, nonfocal, without guarding nor percussion tender) - Back Back: No CVA TTP - Derm Derm: Normal color, Warm and dry - Extremities Extremities: Normal ROM s pain, No edema, No calf tenderness / cord, Other (small sore right heel without signs of infection) - Neuro Neuro: No motor deficit, Normal speech Results - Vitals Vitals: Vital Signs - 24 hr 01/07/20 01/07/20 01/07/20 09:28 09:51 10:39 Temperature 37.9 C H Heart Rate 95 86 91 Respiratory 25 H 24 20 Rate Blood Pressure 155/83 H 146/69 H 130/86 H O2 Saturation 96 96 97 Oxygen O2 Source Room air - Labs Labs: Laboratory Tests 01/07/20 01/07/20 01/07/20 09:50 09:50 10:00 WBC 9.6 RBC 2.99 L Hgb 10.4 L Hct 30.6 L MCV 102.3 H MCH 34.8 H MCHC 34.0 RDW 13.4 Plt Count 190 MPV 9.8 Neut # (Auto) 8.5 H Lymph # (Auto) 0.4 L Reeves # (Auto) 0.6 Eos # (Auto) 0.0 Baso # (Auto) 0.0 Absolute Nucleated RBC 0.00 Nucleated RBC % 0.0 PT INR Sodium Potassium Chloride Carbon Dioxide Anion Gap BUN Creatinine Estimated GFR (MDRD) Glucose Lactic Acid Calcium Magnesium Total Bilirubin AST ALT Alkaline Phosphatase Total Protein Albumin Globulin Albumin/Globulin Ratio Urine Color YELLOW Urine Clarity CLEAR Urine pH 6.5 Ur Specific [place] 1.015 Urine Protein 30 H Urine Glucose (UA) NEGATIVE Urine Ketones NEGATIVE Urine Occult Blood TRACE-INTA Urine Nitrite NEGATIVE Urine Bilirubin NEGATIVE Urine Urobilinogen 1 (NORMAL) Ur Leukocyte Esterase NEGATIVE Urine RBC 6-10 H Urine WBC 4-5 Ur Squamous Epith Cells NONE SEEN Urine Bacteria Rare Urine Culture Comments NOT INDICATED Influenza A (Rapid) Negative Influenza B (Rapid) Negative 01/07/20 01/07/20 01/07/20 10:00 10:00 10:00 WBC RBC Hgb Hct MCV MCH MCHC RDW Plt Count MPV Neut # (Auto) Lymph # (Auto) Reeves # (Auto) Eos # (Auto) Baso # (Auto) Absolute Nucleated RBC Nucleated RBC % PT 32.3 H INR 3.0 H Sodium 134 L Potassium 3.5 Chloride 100 L Carbon Dioxide 21 Anion Gap 13.0 BUN 19 Creatinine 0.9 Estimated GFR (MDRD) 60 L Glucose 138 H Lactic Acid 1.4 Calcium 8.6 Magnesium 1.8 Total Bilirubin 1.2 H AST 27 ALT 12 Alkaline Phosphatase 40 L Total Protein 7.0 Albumin 3.9 Globulin 3.1 Albumin/Globulin Ratio 1.3 Urine Color Urine Clarity Urine pH Ur Specific [place] Urine Protein Urine Glucose (UA) Urine Ketones Urine Occult Blood Urine Nitrite Urine Bilirubin Urine Urobilinogen Ur Leukocyte Esterase Urine RBC Urine WBC Ur Squamous Epith Cells Urine Bacteria Urine Culture Comments Influenza A (Rapid) Influenza B (Rapid) PD MEDICAL DECISION MAKING - ED course Complexity details: re-evaluated patient (More promptly awake with interaction after IV fluids. She is still seems a little sluggish for answering questions and she still feels a bit confused herself. However there is improvement with hydration and initial treatments. She does not seem septic per se but does have pneumonia with some altered mental status and dehydration. Recheck of the abdomen is minimally tender in the epigastric area and no focal tenderness to palpation or percussion in the lower abdomen.), considered differential, d/w patient, d/w family (son) Departure - Departure Disposition: 66 [facility] DC/Xfer Clinical Impression: Dehydration Pneumonia Qualifiers: Pneumonia type: due to unspecified organism Laterality: left Lung location: lower lobe of lung Qualified Code(s): J18.9 - Pneumonia, unspecified organism Nausea & vomiting Qualifiers: Vomiting type: unspecified Vomiting Intractability: non-intractable Qualified Code(s): R11.2 - Nausea with vomiting, unspecified AMS (altered mental status) Qualifiers: Altered mental status type: somnolence Qualified Code(s): R40.0 - Somnolence
--- NOTE | 2020-01-07 10:04 | XRAY Report ---
Reason: chest pain Procedure Date: 01/07/2020 Accession Number: [id number] / [id number] Procedure: XR - Chest 1 View X-Ray CPT Code: 03455 Final Report FULL RESULT: EXAM: CHEST RADIOGRAPHY EXAM DATE: 01/07/2020 09:39 AM. CLINICAL HISTORY: Chest pain and cough for 1 week. COMPARISON: CHEST 2 VIEW PA/LAT 04/19/2017. TECHNIQUE: 1 view. FINDINGS: Lungs/Pleura: There is patchy consolidation of the left lower lobe. The right lung appears unremarkable. There are no pleural effusions. Mediastinum: There is mild cardiac enlargement with aortic unfolding. 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 There is inferior subluxation of the humeral head. IMPRESSION: Left lower lobe consolidation suggestive of pneumonia. RADIA
[2020-01-07 10:08] LABS: BASOPHILS % (AUTO) 0.3 %; HGB - HEMOGLOBIN 10.4 g/dL (12.0-16.0); LYMPHOCYTES # (AUTO) 0.4 10^3/uL (1.5-3.5); LYMPHOCYTES % (AUTO) 4.2 %; MEAN CORPUSCULAR HEMOGLOBIN 34.8 pg (27.0-31.0); MEAN CORPUSCULAR VOLUME 102.3 fL (81.0-99.0); MEAN PLATELET VOLUME 9.8 fL (7.9-10.8); MONOCYTES # (AUTO) 0.6 10^3/uL (0.0-1.0); MONOCYTES % (AUTO) 6.4 %; NEUTROPHILS # (AUTO) 8.5 10^3/uL (1.5-6.6); NEUTROPHILS % (AUTO) 88.5 %; PLT - PLATELET COUNT 190 10^3/uL (130-450); RED BLOOD COUNT 2.99 10^6/uL (4.20-5.40); RED CELL DISTRIBUTION WIDTH 13.4 % (12.0-15.0); WHITE BLOOD COUNT 9.6 x10^3/uL (4.8-10.8)
[2020-01-07 10:10] LABS: BILIRUBIN,URINE NEGATIVE (NEGATIVE); GLUCOSE, URINE (UA) NEGATIVE (NEGATIVE); KETONES,URINE (UA) NEGATIVE (NEGATIVE); LEUKOCYTE ESTERASE, URINE NEGATIVE (NEGATIVE); NITRITE,URINE NEGATIVE (NEGATIVE); OCCULT BLOOD,URINE TRACE-INTA (NEGATIVE); PH,URINE 6.5 PH (5.0-7.5); PROTEIN,URINE 30 mg/dL (NEGATIVE); UROBILINOGEN,URINE 1 (NORMAL) E.U./dL (NORMAL)
[2020-01-07 10:15] LABS: CLARITY,URINE CLEAR (CLEAR)
[2020-01-07 10:19] LABS: BACTERIA,URINE Rare /HPF (None Seen); SQUAMOUS EPITHELIAL CELL,UR NONE SEEN (<= Few)
[2020-01-07] MEDS ORDERED: AZITHROMYCIN INJ 500 MG in SODIUM CHLORIDE 0.9% 250 ML IV STA (10:19)
[2020-01-07] MEDS ORDERED: cefTRIAXone 1 GM VIAL IVP STA (10:19)
[2020-01-07 10:21] LABS: PT - PROTHROMBIN TIME 32.3 secs (9.9-12.6)
[2020-01-07 10:22] LABS: ALBUMIN 3.9 g/dL (3.2-5.5); ALBUMIN/GLOBULIN RATIO 1.3 (1.0-2.2); BILIRUBIN,TOTAL 1.2 mg/dL (0.2-1.0); CALCIUM 8.6 mg/dL (8.5-10.3); CREATININE 0.9 mg/dL (0.4-1.0); MAGNESIUM 1.8 mg/dL (1.7-2.8)
[2020-01-07] MEDS ORDERED: SODIUM CHLORIDE FLUSH 0.9% 10 ML SYRINGE IVP PRN (10:56)
[2020-01-07] MEDS ORDERED: ONDANSETRON 4 MG/2 ML VIAL IVP PRN (10:56)
[2020-01-07] MEDS ORDERED: ONDANSETRON ODT 4 MG TABLET TL PRN (10:56)
--- NOTE | 2020-01-07 12:26 | HISTORY & PHYSICAL EXAMINATION ---
Chief Complaint - Chief Complaint Chief Complaint: Nausea, vomiting, change in mental status and cough <ShiloDoreen - Last Filed: 01/07/20 14:38> History of Present Illness - Admitted From Admitted From:: Emergency room - History Obtained From Records Reviewed: Yes History obtained from: Patient and her son Brendon Exam Limitations: None <ShiloDoreen - Last Filed: 01/07/20 14:38> <Olga Sanchez - Last Filed: 01/07/20 16:38> - History of Present Illness HPI Comment/Other: Ms. 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 Three nights ago that patients son said that she had some nasal decongestion and headache for which he gave her pseudophed and put her to bed. She was nauseous and had dry heaving throughout the night with a temperature of 100.2 degrees F. She did not feel well the following day, and again had nausea and dry heaving when she went to bed to go to sleep. She had mental confusion when she woke, which really concerned her son Brendon. He reports that she continues to take in liquids, void, and have BMs. Patient WBC 9.6, INR 3.0, Na 134, K 3.5, glucose 138, lactate 1.4, influenza A and B are negative. Chest x-ray shows left lower lobe consolidation. Vital signs 37.9 degrees C, HR 95, BP 155/83, RR 25, sating 96% on room air. Patient tachypneic when [employer] student examining her and she was desaturating to 86%. Patient given IV ceftriaxone and azithromycin. Patient's PSI score is 91% or moderate risk and requires inpatient admission for treatment of community acquired pneumonia. (Doreen Lao) At this moment in time, Covid 19 virus is a consideration for patients presenting with her symptoms. She does not meet any of the screening criteria for the Department of Health for [facility] at this time. 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 Inferior subluxation fo humeral head.) Derm: reports: None - Past Surgical History Ortho: reports: Rotator cuff repair, Shoulder arthroplasty (Right shoulder. She has had 3 surgeries on this shoulder. She is scheduled to have shoulder surgery 01/10 at [facility] with Dr. Aggarwal.) - Family & Social History Family History: Mother: , Cancer (Breast), Father: , CAD (ID at 49), Brother: CAD Living arrangement: At home Living Situation: With family Social History Notes: The patient lives in [facility] she lives with her son. She has 2 sons one of whom lives in [place] and the other who lives with her. She's been living on [facility] since [place]. She was born and raised in [place]. She is a nonsmoker she does drink a glass of wine a night she denies any illicit drug use. - Substance History Use: Uses substance without health or social issues: Alcohol (Patient drinks a glass of wine a night) - POLST Patient has POLST: No POLST Status: Full Code <Doreen Lao - Last Filed: 01/07/20 14:38> Meds/Allgy <Luiz Williamson - Last Filed: 01/07/20 13:21> <Doreen Lao - Last Filed: 01/07/20 14:38> <Olga Sanchez - Last Filed: 01/07/20 16:38> - Home Medications Home Medications: Ambulatory Orders Medication Instructions Recorded Confirmed Warfarin Sodium [Coumadin] 5 mg PO [id number] 07/14/13 01/07/20 Citalopram Hydrobromide 20 mg PO DAILY 04/19/17 01/07/20 [Citalopram HBr] Pravastatin Sodium 80 mg PO DAILY 04/19/17 01/07/20 allopurinoL [Allopurinol] 100 mg PO BID 04/19/17 01/07/20 Aspirin [Aspirin EC] 81 mg PO DAILY 03/06/20 03/06/20 Gabapentin 300 mg PO DAILY 01/07/20 01/07/20 Lactobacillus Acidophilus 1 tab PO DAILY 01/07/20 01/07/20 [Probiotic Acidophilus] Multivitamin [Theragran] 1 tab PO DAILY 01/07/20 01/07/20 Pantoprazole Sodium 40 mg PO DAILY 01/07/20 01/07/20 Warfarin Sodium 7.5 mg PO MOTH 01/07/20 01/07/20 levETIRAcetam [Levetiracetam] 250 mg PO BID 01/07/20 01/07/20 - Allergies Allergies/Adverse Reactions: Allergies Allergy/AdvReac Type Severity Reaction Status Date / Time latex Allergy Unknown Verified 01/07/20 09:27 Penicillins Allergy anaphylaxis Verified 01/07/20 09:27 Review of Systems - Constitutional Constitutional: reports: Fatigue, Fever, Chills, Malaise, Poor appetite - Eyes Eyes: reports: Corrective lenses. denies: Pain - Ears, Nose & Throat Ears, Nose & Throat: reports: Nasal congestion - Cardiovascular Cariovascular: denies: Irregular heart rate, Palpitations, Chest pain - Respiratory Respiratory: reports: Cough - Gastrointestinal Gastrointestinal: reports: Vomiting, Bile emesis, Poor appetite - Genitourinary Genitourinary: denies: Dysuria, Frequency, Urgency - Musculoskeletal Musculoskeletal: reports: Other (Right shoulder inferior subluxation of humeral head. Extremely painful with movement. Patient wears a sling to protect the arm.) - Integumentary Integumentary: reports: Dryness - Neurological Neurological: reports: Headache - Psychiatric Psychiatric: denies: Depression, Anxiety - Endocrine Endocrine: denies: Polyuria, Polydypsia - Hematologic/Lymphatic Hematologic/Lymphatic: reports: Blood clots (Patient takes coumadin daily, but stopped yesterday in preparation for surgery 01/11/2020. She is supposed to start SQ lovenox tomorrow, 01/07.) - All Other Systems All Other Systems: reports: Reviewed and negative <Doreen Lao - Last Filed: 01/07/20 14:38> - Ears, Nose & Throat Ears, Nose & Throat: denies: Nasal discharge, Sore throat, Hoarseness - Respiratory Respiratory: reports: Wheezing. denies: Sputum production, Hemoptysis, Orthopnea - Gastrointestinal Gastrointestinal: denies: Abdominal pain, Abdominal distention, Diarrhea, Bloody stools - Musculoskeletal Musculoskeletal: denies: Muscle aches, Joint pain <Olga Sanchez - Last Filed: 01/07/20 16:38> <Olga Sanchez - Last Filed: 01/07/20 16:38> Prior Level of Functionality: Still independent with regards to activities of daily living. She dresses herself, feed herself, drives a car short distances. She lives with her son and does not use any durable medical equipment (Olga Sanchez) Exam - Vital Signs Reviewed Vital Signs: Yes - Physical Exam General Appearance: positive: Mild distress, Lethargic Eyes Bilateral: positive: PERRL, EOMI ENT: positive: Dry mucous membranes. negative: No signs of dehydration Neck: positive: Nml inspection, Trachea midline Respiratory: positive: Wheezes (Expiratory wheezes), Other (Tachypnea) Cardiovascular: positive: Regular rate & rhythm Peripheral Pulses: positive: 2+ Abdomen: positive: Non-tender, No organomegaly, Nml bowel sounds, No distention Back: positive: Nml inspection Skin: positive: Color nml, Warm, Dry Extremities: positive: Other (Step off of left shoulder) Neurologic/Psychiatric: positive: Sensation nml, Disoriented to time, Other (sleepy) <Doreen Lao - Last Filed: 01/07/20 14:38> - Physical Exam General Appearance: positive: Other (she is an elderly, fatigued appearing female who wants to) ENT: positive: Other (no rhonirrhea or coryza) Cardiovascular: positive: No murmur. negative: Gallop/S4, Friction rub Extremities: positive: No pedal edema, Other <Olga Sanchez - Last Filed: 01/07/20 16:38> - Vital Signs Vital Signs: Vital Signs x48h Temp Pulse Resp BP Pulse Ox 01/07/20 10:39 91 20 130/86 H 97 01/07/20 09:51 86 24 146/69 H 96 01/07/20 09:28 37.9 C H 95 25 H 155/83 H 96 Conclusion/Plan - Lab Results Fish Bones: 01/07/20 10:00 01/07/20 10:00 <Luiz Williamson - Last Filed: 01/07/20 13:21> - Problem List (1) Community acquired pneumonia Conclusion/Plan: Patient admitted for 3 days of nasal congestion, headache, nausea, dry heaving, and bile emesis with increased respiratory rate and low grade fever. CXR showed left lower lobe consolidation. Patient requiring 2L O2 per nasal cannula to keep oxygen saturation about 92%. Patient started on ceftriaxone the azithromycin IV for broad spectrum coverage of community acquired pneumonia. 1. If patient coughing up sputum, send sample for culture and sensitivies. 2. Respiratory therapy consult to encourage patient to cough and deep breath, nebulizer treatments and bronchopulmonary hygiene. 3. Continue IV antibiotics. 4. O2 to keep oxygen saturation about 92%. Qualifiers: Laterality: left Lung location: lower lobe of lung Qualified Code(s): J18.9 - Pneumonia, unspecified organism (2) Dehydration Conclusion/Plan: Patient admitted with dry oral mucosa after several days of nausea and vomiting, use of pseudophed for nasal congestion, and decreased appetite. Patient's son Brendon reports that his mom is drinking fluids and broth and voiding regularly. Patient given IV NS in the ER. No recorded output as of yet. 1. IV fluids 2. Monitor I/Os 3. Encourage patient to orally rehydrate with fluids available at bedside. (3) Nausea & vomiting Conclusion/Plan: For three days the patient has had nausea, bile emesis and dry heaving. She has been able to take clear liquids by mouth. 1. IV fluid hydration 2. IV and po Zofran prn nausea 3. Clear liquid diet. Advance diet as tolerated. Qualifiers: Vomiting type: unspecified Vomiting Intractability: non-intractable Qualified Code(s): R11.2 - Nausea with vomiting, unspecified (4) Subtherapeutic international normalized ratio (INR) Conclusion/Plan: Patient takes 5 mg coumadin daily for previous PEs x2 and DVT. Patient stopped coumadin yesterday in preparation for her shoulder arthoplasty planned for 01/10. Patient's INR was 3.1. No signs of bleeding noted. Hbg 10.4 and Hct 30.6. 1. Continue to hold coumadin. 2. Monitor for signs of bleeding with daily CBC and coags. (5) Hypertension Conclusion/Plan: Patient has a history of hypertension and takes metoprolol succinate 5mg. 1. Continue metoprolol. Hold for SBP <90. Qualifiers: Hypertension type: essential hypertension Qualified Code(s): I10 - Essential (primary) hypertension - Lab Results Fish Bones: 01/07/20 10:00 01/07/20 10:00 <Doreen Lao - Last Filed: 01/07/20 14:38> - Lab Results Lab results reviewed: Yes Fish Bones: 01/07/20 10:00 01/07/20 10:00 <Olga Sanchez - Last Filed: 01/07/20 16:38> - Diagnostic Imaging Results Diagnostic Imaging Results Comments: Chest x-ray- notable for left lower lung opacity and old right non-united fracture humerus neck and inferior subluxation of humeral head. (Doreen Lao) - Other Other Results/Comments: Patient was seen and examined with and without [employer] student. Minimal changes made to H&P for clarity. Agree with A/P (Olga Sanchez) Core Measures - Anticipated LOS I expect patient to be DC'd or transferred within 96 hours.: Yes - DVT/VTE - Prophylaxis VTE/DVT Device ordered at admit?: Yes <Olga Sanchez - Last Filed: 01/07/20 16:38>
[2020-01-07] MEDS: ALBUTEROL NEB 2.5 MG/3 ML INH SCH ×3 (13:01→22:15)
[2020-01-07] MEDS: LACTATED RINGERS 1,000 ML IV SCH ×2 (13:22→22:19)
[2020-01-07] MEDS: GABAPENTIN 300 MG CAPSULE PO SCH ×2 (13:44→21:40)
--- NOTE | 2020-01-07 15:38 | PHARMACY PROGRESS NOTE ---
- Best Possible Medication History Admit Date and Time: 01/07/20 1056 Processed by: Pharmacy Medication History completed: Yes Patient Interview: Pt unable to participate Secondary Source(s): Written medication list, Other family member (son), Insu jhonny records As the person ultimately responsible for medication therapy, providers are able to order a medication from an existing home medication list in [facility] via the "Reconcile Routine" prior to Confirmation of that medication by retail support associate. Such practice is discouraged except when the physician, in their clinical judgment, deems that a medical need exists for a medication without regard to previous use.
[2020-01-07] MEDS: SACCHAROMYCES BOULARDII 250 MG CAPSULE PO SCH (17:12)
[2020-01-07] MEDS: SODIUM CHLORIDE FLUSH 0.9% 10 ML SYRINGE IVP SCH (17:12)
[2020-01-07] MEDS ORDERED: METOPROLOL SUCCINATE 25 MG TABLET PO SCH (21:00)
[2020-01-08] MEDS: SODIUM CHLORIDE FLUSH 0.9% 10 ML SYRINGE IVP SCH ×3 (00:46→16:51)
[2020-01-08] MEDS: ACETAMINOPHEN 325 MG TABLET PO PRN (00:54)
[2020-01-08] MEDS: ALBUTEROL NEB 2.5 MG/3 ML INH SCH ×4 (01:07→12:31)
[2020-01-08 05:35] LABS: BASOPHILS % (AUTO) 0.6 %; HGB - HEMOGLOBIN 8.8 g/dL (12.0-16.0); LYMPHOCYTES # (AUTO) 0.7 10^3/uL (1.5-3.5); LYMPHOCYTES % (AUTO) 10.1 %; MEAN CORPUSCULAR HEMOGLOBIN 34.5 pg (27.0-31.0); MEAN CORPUSCULAR HGB CONC 32.7 g/dL (32.0-36.0); MEAN CORPUSCULAR VOLUME 105.5 fL (81.0-99.0); MEAN PLATELET VOLUME 9.6 fL (7.9-10.8); MONOCYTES # (AUTO) 0.5 10^3/uL (0.0-1.0); MONOCYTES % (AUTO) 8.1 %; NEUTROPHILS # (AUTO) 5.4 10^3/uL (1.5-6.6); NEUTROPHILS % (AUTO) 80.6 %; PLT - PLATELET COUNT 157 10^3/uL (130-450); RED BLOOD COUNT 2.55 10^6/uL (4.20-5.40); RED CELL DISTRIBUTION WIDTH 13.6 % (12.0-15.0); WHITE BLOOD COUNT 6.7 x10^3/uL (4.8-10.8)
[2020-01-08 05:44] LABS: CALCIUM 7.7 mg/dL (8.5-10.3); CREATININE 1.3 mg/dL (0.4-1.0)
[2020-01-08] MEDS: GABAPENTIN 300 MG CAPSULE PO SCH (06:48)
[2020-01-08] MEDS: LACTATED RINGERS 1,000 ML IV SCH ×2 (06:49→19:44)
[2020-01-08] MEDS: CITALOPRAM 10 MG TABLET PO SCH (09:26)
[2020-01-08] MEDS: SACCHAROMYCES BOULARDII 250 MG CAPSULE PO SCH ×2 (09:26→16:53)
[2020-01-08] MEDS: cefTRIAXone 1 GM in SODIUM CHLORIDE 0.9% MINIBAG 100 ML IV SCH (09:27)
[2020-01-08] MEDS: AZITHROMYCIN INJ 500 MG in SODIUM CHLORIDE 0.9% 250 ML IV SCH (10:21)
[2020-01-08] MEDS: oxyCODONE 5 MG TABLET PO PRN (10:25)
--- NOTE | 2020-01-08 10:42 | XRAY Report ---
Reason: suddencp and sob Procedure Date: 01/08/2020 Accession Number: [id number] / [id number] Procedure: XR - Chest 1 View X-Ray CPT Code: 52750 Final Report FULL RESULT: EXAM: CHEST RADIOGRAPHY EXAM DATE: 01/08/2020 10:27 AM. CLINICAL HISTORY: Sudden cp and sob. COMPARISON: CHEST 1 VIEW 01/07/2020 9:23 AM. TECHNIQUE: 1 view. FINDINGS: Lungs/Pleura: Hypoinflation. Mild increased bilateral vascular and interstitial prominence could be due to hypoinflation although mild acute interstitial infiltrate or edema is not excluded. There is mild increased focal left lower lung/retrocardiac atelectasis or infiltrate. Evidence of a hiatal hernia. Mediastinum: Stable cardiac enlargement. Other: None. IMPRESSION: 1. Hypoinflation. 2. Mild increased bilateral vascular and interstitial prominence could be due to hypoinflation although mild acute interstitial infiltrate or edema is not excluded. 3. There is mild increased focal left lower lung/retrocardiac atelectasis or infiltrate. RADIA
--- NOTE | 2020-01-08 10:53 | PROVIDER PROGRESS NOTE ---
Subjective - Prog Note Date Prog Note Date: 01/08/20 Prog Note Time: 11:00 - Subjective Pt reports feeling: Improved Subjective: She was seen at 8:00 this morning. She was awake, alert. Feeding herself breakfast and struggling because of tremulousness her right arm and right hand as she tried to get eggs into her mouth. But she was eating. Cheerful. Cooperative. Knew that she was in the hospital and why she was here but just could not remember the date. At approximately 10:30 nurse called me to the bedside to let me know that the patient was suddenly and acutely very short of breath. Rapid response called. Initially we thought she was tachycardic to the 190s but it ended up being her tremors being missed read on the telemetry. EKG shows normal sinus rhythm. She is tachypneic but no use of accessory muscles. She is smiling. Tells me that her chest hurts, abdomen hurts, but cannot tell me why she is short of breath. As I evaluate her, her son is at the bedside. He tells me that mom will say yes to everything so to just take "her story with a grain of salt". However in asking for a review of systems, he shared with me something that they had not discussed yesterday. A year ago she was seen by cardiology, [facility]. She had an coronary angiogram and underwent a stent. Plavix was stopped approximately a month ago. She was seen by cardiology again last week in preparation for surgery and she was felt to be at adequate risk without increased risk. To his knowledge she has not had any chest pain, shortness of breath, edema until she started getting sick these last few days. Current Medications - Current Medications Current Medications: Active Medications Acetaminophen (Tylenol) 650 mg PO Q4HR PRN PRN Reason: Pain 1 to 4 Last Admin: 01/08/20 00:54 Dose: 650 mg Albuterol () 2.5 mg INH Q4HR [facility] Stop: 01/08/20 12:59 Last Admin: 01/08/20 07:25 Dose: 2.5 mg Citalopram Hydrobromide (Celexa) 20 mg PO DAILY [facility] Last Admin: 01/08/20 09:26 Dose: 20 mg Azithromycin 500 mg/ Sodium (Chloride) 250 mls @ 250 mls/hr IV DAILY [facility] Stop: 01/10/20 09:59 Last Admin: 01/08/20 10:21 Dose: 250 mls/hr Ceftriaxone Sodium 1 gm/ (Sodium Chloride) 100 mls @ 200 mls/hr IV DAILY [facility] Stop: 01/12/20 09:29 Last Infusion: 01/08/20 10:40 Dose: Infused Lactated Ringer's (Lr) 1,000 mls @ 100 mls/hr IV .Q10H [facility] Last Admin: 01/08/20 06:49 Dose: 100 mls/hr Ondansetron HCl (Zofran Inj) 4 mg IVP Q6HR PRN PRN Reason: Nausea / Vomiting Ondansetron HCl (Zofran Odt) 4 mg TL Q6HR PRN PRN Reason: Nausea / Vomiting Oxycodone HCl (Roxicodone) 5 mg PO Q4HR PRN PRN Reason: Pain 5 to 7 Saccharomyces Boulardii (Florastor) 250 mg PO BIDWM [facility] Last Admin: 01/08/20 09:26 Dose: 250 mg Sodium Chloride (Normal Saline Flush 0.9%) 10 ml IVP PRN PRN PRN Reason: NEEDED PER PROVIDER ORDERS Sodium Chloride (Normal Saline Flush 0.9%) 10 ml IVP 0100,0900,1700 [facility] Last Admin: 01/08/20 09:08 Dose: Not Given Warfarin Sodium [Coumadin] 5 mg PO SUTUWEFRSA 07/14/13 Citalopram Hydrobromide [Citalopram HBr] 20 mg PO DAILY 04/19/17 Pravastatin Sodium 80 mg PO DAILY 04/19/17 allopurinoL [Allopurinol] 100 mg PO BID 04/19/17 Aspirin [Aspirin EC] 81 mg PO DAILY 01/07/20 Gabapentin 300 mg PO DAILY 01/07/20 Lactobacillus Acidophilus [Probiotic Acidophilus] 1 tab PO DAILY 01/07/20 Multivitamin [Theragran] 1 tab PO DAILY 01/07/20 Pantoprazole Sodium 40 mg PO DAILY 01/07/20 Warfarin Sodium 7.5 mg PO MOTH 01/07/20 levETIRAcetam [Levetiracetam] 250 mg PO BID 01/07/20 Objective - Vital Signs/Intake & Output Reviewed Vital Signs: Yes Vital Signs: Vital Signs x48h Temp Pulse Pulse Resp BP Pulse Ox 03/07/20 08:29 37.4 C 01/08/20 08:16 90 L 01/08/20 08:00 36.8 C 81 18 102/58 L 83 L 01/08/20 07:29 80 18 01/08/20 05:37 73 20 01/08/20 02:50 37 C Intake & Output: Intake & Output 01/05/20 01/06/20 01/07/20 01/08/20 23:59 23:59 23:59 23:59 Intake Total 2725 1190 Output Total 0 Balance 2725 1190 - Objective General Appearance: positive: Alert, Mild distress, Other (Tiny 5 foot 2 inch elderly female who weighs 63 kg, and she has lost so much weight that her facial structure resembles more of a skull when she smiles and teeth are protuberant.) Eyes Bilateral: positive: PERRL ENT: positive: Dry mucous membranes Neck: positive: No JVD. negative: Stiff neck Respiratory: positive: Chest non-tender. negative: Wheezes, Rales, Rhonchi Cardiovascular: positive: Regular rate & rhythm, Systolic murmur. negative: Gallop/S4, Friction rub Abdomen: positive: Non-tender, No organomegaly, Nml bowel sounds, No distention Skin: positive: Warm, Dry, Pallor Extremities: positive: Non-tender, No pedal edema Neurologic/Psychiatric: positive: CN's nml (2-12), Motor nml, Disoriented to time, Weakness (generalized and severe.) - Lab Results Fish Bones: 01/08/20 05:20 01/08/20 05:20 Other Labs: Lab Results x24hrs 01/08/20 01/08/20 Range/Units 05:20 05:20 WBC 6.7 (4.8-10.8) x10^3/uL RBC 2.55 L (4.20-5.40) 10^6/uL Hgb 8.8 L (12.0-16.0) g/dL Hct 26.9 L (37.0-47.0) % MCV 105.5 H (81.0-99.0) fL MCH 34.5 H (27.0-31.0) pg MCHC 32.7 (32.0-36.0) g/dL RDW 13.6 (12.0-15.0) % Plt Count 157 (130-450) 10^3/uL MPV 9.6 (7.9-10.8) fL Neut # (Auto) 5.4 (1.5-6.6) 10^3/uL Lymph # (Auto) 0.7 L (1.5-3.5) 10^3/uL [place] # (Auto) 0.5 (0.0-1.0) 10^3/uL Eos # (Auto) 0.0 (0.0-0.7) 10^3/uL Baso # (Auto) 0.0 (0.0-0.1) 10^3/uL Absolute Nucleated RBC 0.00 x10^3/uL Nucleated RBC % 0.0 /100WBC Sodium 134 L (135-145) mmol/L Potassium 3.6 (3.5-5.0) mmol/L Chloride 102 (101-111) mmol/L Carbon Dioxide 22 (21-32) mmol/L Anion Gap 10.0 (6-13) BUN 23 H (6-20) mg/dL Creatinine 1.3 H (0.4-1.0) mg/dL Estimated GFR (MDRD) 39 L (>89) Glucose 117 H (70-100) mg/dL Calcium 7.7 L (8.5-10.3) mg/dL Laboratory Tests 01/08/20 01/08/20 05:20 10:25 Troponin I High Sens 732.7 H* 572.3 H* ABX Reporting Has patient been on IV antibiotics over the past 48 hours?: Yes Assessment/Plan - Problem List (1) Acute dyspnea Impression: 45 minutes of at the bedside care was provided to the patient with this rapid response, ordering lab test, frequent examinations, speaking to family. Acute shortness of breath with a change in mental status this morning resulted in a rapid response. It was also reported that her heart rate was 190. But this donna elderly person has been having tremulousness with her exhaustion and illness. When EKG was done her pulse rate was normal. We think the tremulousness gave a false read on the telemetry. Blood pressure was stable. She was complaining of shortness of breath, and some chest tightness, abdominal discomfort, nausea but her son told us all that she is saying yes to everything we asked, and to take this with a grain of salt. Lungs have diminished breath sounds at the bases. There is no crackles or rhonchi. No increased respiratory effort but she did have increased respiratory rate. She was smiling, cooperative. Very donna lady. Stat EKG, troponin, chest x-ray was done.EKG shows sinus rhythm. She has some nonspecific ST elevations in the anterior leads. Chest x-ray is without any change. Troponin at this point in time is 572.3. So I had the lab do an add-on troponin to the 5:30 AM labs. And that troponin was 732.7. I have currently asked lab of is possible for them to do a troponin on yesterday's blood sample from January 06 at 10 AM. She has received an Aspirin, Atorvastatin. I can't do metoprolol bc of low BP. I have put in a call to the Collection Team Lead senior formulation scientist for [employer]. She is taken care of by Nicolas Alberts MD at [place]. Dr. Sun was first senior formulation scientist but he said he's sick so can't speak to me and Dr. Lucille Watkins is now senior formulation scientist. I am awaiting a call back to assess if they feels something else should be done. Son is amenable to their recommendations. (2) Community acquired pneumonia. Conclusion/Plan Patient admitted for 3 days of nasal congestion, headache, nausea, dry heaving, and bile emesis with increased respiratory rate and low grade fever. CXR showed left lower lobe consolidation. Patient requiring 2L O2 per nasal cannula to keep oxygen saturation about 92%. Patient started on ceftriaxone the azithromycin IV for broad spectrum coverage of community acquired pneumonia. Her white cell count started at 9.6 on admission > 6.7 today. Temperature was 38. 3 at 1 in the morning. Heart rate has been in the 80s. O2 sat 83% this morning on 1 L and now 90% on 2 L. 1. If patient coughing up sputum, send sample for culture and sensitivies. 2. Respiratory therapy consult to encourage patient to cough and deep breath, nebulizer treatments and bronchopulmonary hygiene. 3. Continue IV antibiotics. Day #2 4. O2 to keep oxygen saturation about 92%. 5. Review CXR from problem #1. Qualifiers: Laterality: left Lung location: lower lobe of lung Qualified Code(s): J18.9 - Pneumonia, unspecified organism (3) Dehydration Conclusion/Plan: Patient admitted with dry oral mucosa after several days of nausea and vomiting, use of pseudophed for nasal congestion, and decreased appetite. However, patient's son Brendon reports that his mom is drinking fluids and broth and voiding regularly. Patient given IV NS in the ER. Since admission there is been no urine output. There is some dribbling. Bladder scan shows retention from 400 to 415 cc. 1. IV fluids 2. Monitor I/Os 3. Encourage patient to orally rehydrate with fluids available at bedside. 4. Fam catheter. (4) Nausea & vomiting Conclusion/Plan: For three days before admission the patient has had nausea, bile emesis and dry heaving. She has been able to take clear liquids by mouth. 1. IV fluid hydration to continue for today. She is eating now. 2. IV and po Zofran prn nausea 3. Diet advanced from clear to regular. 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 Patient stopped coumadin 01/05 in preparation for her shoulder arthoplasty planned for 01/10. Patient's INR was 3.1. No signs of bleeding noted. Hbg 10.4 and Hct 30.6. 1. Continue to hold coumadin. 2. Monitor for signs of bleeding with daily CBC and coags. Today INR not ordered. Will order for tomorrow and daily 3. Since she is not going to OR next Friday, surgery has been cancelled, resume coumadin when INR <2.0 (6) Hypertension Conclusion/Plan: Patient has a history of hypertension and we read where she takes metoprolol succinate 5mg on the admit med list. So metoprolol was ordered. Pharmacy and son have reconciled her old list and she is NOT on metoprolol. Blood pressure is low. She is in the low 100s systolic. Pulse rate is in the 90s. Stop metoprolol Qualifiers: Hypertension type: essential hypertension Qualified Code(s): I10 - Essential (primary) hypertension (7) Generalized weakness from illness over 4-5 days. Plan: PT eval and tx Since she is manifesting probs swallowing, and has LLL consol on CXR, speech therapy swallow eval
[2020-01-08] MEDS ORDERED: ASPIRIN 325 MG TABLET PO STA (15:21)
[2020-01-08] MEDS ORDERED: ATORVASTATIN 40 MG TABLET PO STA (15:22)
[2020-01-09] MEDS: SODIUM CHLORIDE FLUSH 0.9% 10 ML SYRINGE IVP SCH ×3 (01:42→17:16)
[2020-01-09 05:35] LABS: BASOPHILS # (AUTO) 0.1 10^3/uL (0.0-0.1); BASOPHILS % (AUTO) 0.7 %; EOSINOPHILS # (AUTO) 0.1 10^3/uL (0.0-0.7); EOSINOPHILS % (AUTO) 1.5 %; HGB - HEMOGLOBIN 8.9 g/dL (12.0-16.0); LYMPHOCYTES # (AUTO) 0.6 10^3/uL (1.5-3.5); LYMPHOCYTES % (AUTO) 7.6 %; MEAN CORPUSCULAR HEMOGLOBIN 33.1 pg (27.0-31.0); MEAN CORPUSCULAR VOLUME 103.3 fL (81.0-99.0); MEAN PLATELET VOLUME 10.6 fL (7.9-10.8); MONOCYTES # (AUTO) 0.6 10^3/uL (0.0-1.0); MONOCYTES % (AUTO) 7.5 %; NEUTROPHILS # (AUTO) 6.1 10^3/uL (1.5-6.6); NEUTROPHILS % (AUTO) 82.2 %; PLT - PLATELET COUNT 176 10^3/uL (130-450); RED BLOOD COUNT 2.69 10^6/uL (4.20-5.40); RED CELL DISTRIBUTION WIDTH 13.6 % (12.0-15.0); WHITE BLOOD COUNT 7.4 x10^3/uL (4.8-10.8)
[2020-01-09 05:36] LABS: PT - PROTHROMBIN TIME 32.1 secs (9.9-12.6)
[2020-01-09 05:38] LABS: CALCIUM 7.7 mg/dL (8.5-10.3); CREATININE 1.2 mg/dL (0.4-1.0)
[2020-01-09] MEDS ORDERED: FUROSEMIDE 20 MG/2 ML VIAL IVP STA (07:49)
--- NOTE | 2020-01-09 08:03 | PROVIDER PROGRESS NOTE ---
Subjective - Prog Note Date Prog Note Date: 01/09/20 Prog Note Time: 08:10 - Subjective Subjective: she went into afib last night but rate has been controlled. needing a bit more O2 from 1 liter up to 2 liters for sats of 92-95%. No worsening sob. The ECHO shows a systolic heart failure. She nor her son recall a low EF. So between the new CHF and the new afib, I don't think she has demand ischemia from her pneumonia. I think she truly did have an LA days ago with her presentation of nausea, emesis, not feeling well. Could the pneumonia have cause the ischemia or the LA caused the emesis with ?aspiration vs. pneumonia,. Current Medications - Current Medications Current Medications: Active Medications Acetaminophen (Tylenol) 650 mg PO Q4HR PRN PRN Reason: Pain 1 to 4 Last Admin: 01/08/20 00:54 Dose: 650 mg Citalopram Hydrobromide (Celexa) 20 mg PO DAILY [facility] Last Admin: 01/08/20 09:26 Dose: 20 mg Azithromycin 500 mg/ Sodium (Chloride) 250 mls @ 250 mls/hr IV DAILY [facility] Stop: 01/10/20 09:59 Last Infusion: 01/08/20 11:21 Dose: Infused Ceftriaxone Sodium 1 gm/ (Sodium Chloride) 100 mls @ 200 mls/hr IV DAILY [facility] Stop: 01/12/20 09:29 Last Infusion: 01/08/20 10:40 Dose: Infused Ondansetron HCl (Zofran Inj) 4 mg IVP Q6HR PRN PRN Reason: Nausea / Vomiting Ondansetron HCl (Zofran Odt) 4 mg TL Q6HR PRN PRN Reason: Nausea / Vomiting Oxycodone HCl (Roxicodone) 5 mg PO Q4HR PRN PRN Reason: Pain 5 to 7 Saccharomyces Boulardii (Florastor) 250 mg PO BIDWM [facility] Last Admin: 01/08/20 16:53 Dose: 250 mg Sodium Chloride (Normal Saline Flush 0.9%) 10 ml IVP PRN PRN PRN Reason: NEEDED PER PROVIDER ORDERS Sodium Chloride (Normal Saline Flush 0.9%) 10 ml IVP 0100,0900,1700 [facility] Last Admin: 01/09/20 01:42 Dose: Not Given Warfarin Sodium [Coumadin] 5 mg PO SUTUWEFRSA 07/14/13 Citalopram Hydrobromide [Citalopram HBr] 20 mg PO DAILY 04/19/17 Pravastatin Sodium 80 mg PO DAILY 04/19/17 allopurinoL [Allopurinol] 100 mg PO BID 04/19/17 Aspirin [Aspirin EC] 81 mg PO DAILY 01/07/20 Gabapentin 300 mg PO DAILY 01/07/20 Lactobacillus Acidophilus [Probiotic Acidophilus] 1 tab PO DAILY 01/07/20 Multivitamin [Theragran] 1 tab PO DAILY 01/07/20 Pantoprazole Sodium 40 mg PO DAILY 01/07/20 Warfarin Sodium 7.5 mg PO MOTH 01/07/20 levETIRAcetam [Levetiracetam] 250 mg PO BID 01/07/20 Objective - Vital Signs/Intake & Output Reviewed Vital Signs: Yes Vital Signs: Vital Signs x48h Temp Pulse Resp BP Pulse Ox 01/09/20 07:43 37.5 C 97 16 99/65 92 01/09/20 05:00 36.4 C L 100 18 111/64 95 01/09/20 00:53 36.4 C L 80 18 104/60 98 Intake & Output: Intake & Output 01/06/20 01/07/20 01/08/20 01/10/20 23:59 23:59 23:59 00:59 Intake Total 2725 2830.000 Output Total 775 175 Balance 2725 2055.000 -175 - Objective General Appearance: positive: No acute distress, Alert, Other (sitting up in chair. speaking does cause serrato) Eyes Bilateral: positive: PERRL ENT: positive: Pharynx nml Neck: positive: No JVD. negative: Stiff neck Respiratory: positive: Chest non-tender, Rales. negative: Wheezes, Rhonchi Cardiovascular: positive: Irregularly irregular, Systolic murmur. negative: Tachycardia, Gallop/S4, Friction rub Abdomen: positive: Non-tender, No organomegaly, Nml bowel sounds, No distention Skin: positive: Warm, Dry Extremities: positive: No pedal edema Neurologic/Psychiatric: positive: CN's nml (2-12), Motor nml, Disoriented to time - Lab Results Fish Bones: 01/09/20 05:06 01/09/20 05:06 Other Labs: Lab Results x24hrs 01/09/20 01/09/20 01/09/20 Range/Units 05:06 05:06 05:06 WBC (4.8-10.8) x10^3/uL RBC (4.20-5.40) 10^6/uL Hgb (12.0-16.0) g/dL Hct (37.0-47.0) % MCV (81.0-99.0) fL MCH (27.0-31.0) pg MCHC (32.0-36.0) g/dL RDW (12.0-15.0) % Plt Count (130-450) 10^3/uL MPV (7.9-10.8) fL Neut # (Auto) (1.5-6.6) 10^3/uL Lymph # (Auto) (1.5-3.5) 10^3/uL [place] # (Auto) (0.0-1.0) 10^3/uL Eos # (Auto) (0.0-0.7) 10^3/uL Baso # (Auto) (0.0-0.1) 10^3/uL Absolute Nucleated RBC x10^3/uL Nucleated RBC % /100WBC PT 32.1 H (9.9-12.6) secs INR 3.0 H (0.8-1.2) Sodium 133 L (135-145) mmol/L Potassium 3.9 (3.5-5.0) mmol/L Chloride 102 (101-111) mmol/L Carbon Dioxide 20 L (21-32) mmol/L Anion Gap 11.0 (6-13) BUN 32 H (6-20) mg/dL Creatinine 1.2 H (0.4-1.0) mg/dL Estimated GFR (MDRD) 43 L (>89) Glucose 105 H (70-100) mg/dL Calcium 7.7 L (8.5-10.3) mg/dL Troponin I High Sens (2.3-14.8) ng/L B-Natriuretic Peptide 3067 H (5-100) pg/mL 01/09/20 01/08/20 01/08/20 Range/Units 05:06 15:30 10:25 WBC 7.4 (4.8-10.8) x10^3/uL RBC 2.69 L (4.20-5.40) 10^6/uL Hgb 8.9 L (12.0-16.0) g/dL Hct 27.8 L (37.0-47.0) % MCV 103.3 H (81.0-99.0) fL MCH 33.1 H (27.0-31.0) pg MCHC 32.0 (32.0-36.0) g/dL RDW 13.6 (12.0-15.0) % Plt Count 176 (130-450) 10^3/uL MPV 10.6 (7.9-10.8) fL Neut # (Auto) 6.1 (1.5-6.6) 10^3/uL Lymph # (Auto) 0.6 L (1.5-3.5) 10^3/uL [place] # (Auto) 0.6 (0.0-1.0) 10^3/uL Eos # (Auto) 0.1 (0.0-0.7) 10^3/uL Baso # (Auto) 0.1 (0.0-0.1) 10^3/uL Absolute Nucleated RBC 0.00 x10^3/uL Nucleated RBC % 0.0 /100WBC PT (9.9-12.6) secs INR (0.8-1.2) Sodium (135-145) mmol/L Potassium (3.5-5.0) mmol/L Chloride (101-111) mmol/L Carbon Dioxide (21-32) mmol/L Anion Gap (6-13) BUN (6-20) mg/dL Creatinine (0.4-1.0) mg/dL Estimated GFR (MDRD) (>89) Glucose (70-100) mg/dL Calcium (8.5-10.3) mg/dL Troponin I High Sens 661.1 H* 572.3 H* (2.3-14.8) ng/L B-Natriuretic Peptide (5-100) pg/mL 01/08/20 01/07/20 Range/Units 05:20 10:00 WBC (4.8-10.8) x10^3/uL RBC (4.20-5.40) 10^6/uL Hgb (12.0-16.0) g/dL Hct (37.0-47.0) % MCV (81.0-99.0) fL MCH (27.0-31.0) pg MCHC (32.0-36.0) g/dL RDW (12.0-15.0) % Plt Count (130-450) 10^3/uL MPV (7.9-10.8) fL Neut # (Auto) (1.5-6.6) 10^3/uL Lymph # (Auto) (1.5-3.5) 10^3/uL [place] # (Auto) (0.0-1.0) 10^3/uL Eos # (Auto) (0.0-0.7) 10^3/uL Baso # (Auto) (0.0-0.1) 10^3/uL Absolute Nucleated RBC x10^3/uL Nucleated RBC % /100WBC PT (9.9-12.6) secs INR (0.8-1.2) Sodium (135-145) mmol/L Potassium (3.5-5.0) mmol/L Chloride (101-111) mmol/L Carbon Dioxide (21-32) mmol/L Anion Gap (6-13) BUN (6-20) mg/dL Creatinine (0.4-1.0) mg/dL Estimated GFR (MDRD) (>89) Glucose (70-100) mg/dL Calcium (8.5-10.3) mg/dL Troponin I High Sens 732.7 H* 117.3 H* (2.3-14.8) ng/L B-Natriuretic Peptide (5-100) pg/mL ABX Reporting Has patient been on IV antibiotics over the past 48 hours?: Yes Assessment/Plan - Problem List (1) NSTEMI (non-ST elevated myocardial infarction) Impression: Found 01/07 when she presented with acute shortness of breath with a change in mental status, resulted in a rapid response being called. It was also reported that her heart rate was 190. But this donna elderly person has been having tremulousness with her exhaustion and illness. When EKG was done her pulse rate was normal. We think the tremulousness gave a false read on the telemetry. Blood pressure was stable. She was complaining of shortness of breath, and some chest tightness, abdominal discomfort, nausea but her son told us all that she is saying yes to everything we asked, and to take this with a grain of salt. Lungs have diminished breath sounds at the bases. There is no crackles or rhonchi. No increased respiratory effort but she did have increased respiratory rate. She was smiling, cooperative. Very donna lady. Stat EKG, troponin, chest x-ray was done. EKG shows sinus rhythm. She has some nonspecific ST elevations in the anterior leads. Chest x-ray is without any change. Troponin at this point in time is 572.3. So I had the lab do an add-on troponin to the 5:30 AM labs. And that troponin was 732.7. Then had them do add on to the labs from 10:00 01/06 and her troponin was ~100. So she has had significant bump and, in retrospect her nausea, abd pain and cough/sob may have not only been from the LLL consolidation but LA. I spoke to Cardiology application defense manager 01/07 for her group at [facility], Lucille Watkins, and no new recommendations. ECHO shows new acute systolic heart failure with LVEF 20-25%. I will give lasix. Stop LR for fluids. She also has new afib from last night with rate controlled. O2 requirement has gone from no O2 to 1 liter then 2 liters to maintain O2 sat>92% I re-spoke to Dr. Watkins today. He now feels the patient needs further work-up with cardiology. He would like her transferred. [facility] has called me and they say that they have accepted her. We need to wait for a bed to open up.The transfer center will call our switch house operator when they are ready to transfer the patient. I have discussed the case with both of her sons and updated them. (2) Community acquired pneumonia. Conclusion/Plan Patient admitted for 3 days of nasal congestion, headache, nausea, dry heaving, and bile emesis with increased respiratory rate and low grade fever. CXR showed left lower lobe consolidation. Patient requiring 2L O2 per nasal cannula to keep oxygen saturation about 92%. Patient started on ceftriaxone the azithromycin IV for broad spectrum coverage of community acquired pneumonia. Her white cell count started at 9.6 on admission > 6.7>7.4 today. Temperature was 38. 3 at 1 in the morning 3/. No further spikes. 1. If patient coughing up sputum, send sample for culture and sensitivies. 2. Respiratory therapy consult to encourage patient to cough and deep breath, nebulizer treatments and bronchopulmonary hygiene. 3. Continue IV antibiotics. Day #3 4. O2 to keep oxygen saturation about 92%. Qualifiers: Laterality: left Lung location: lower lobe of lung Qualified Code(s): J18.9 - Pneumonia, unspecified organism (3) Dehydration Conclusion/Plan: Patient admitted with dry oral mucosa after several days of nausea and vomiting, use of pseudophed for nasal congestion, and decreased appetite. However, patient's son Brendon reports that his mom is drinking fluids and broth and voiding regularly. Patient given IV NS in the ER. Since admission there is been no urine output. There is some dribbling. Bladder scan shows retention from 400 to 415 cc. 1. IV fluids stopped today. Lasix now given. 2. Monitor I/Os. She is about 4780 positive this morning and needs the lasix for the CHF from LA. 3. Encourage patient to orally rehydrate with fluids available at bedside. 4. Fam catheter placed 01/07 (4) Nausea & vomiting Conclusion/Plan: For three days before admission the patient has had nausea, bile emesis and dry heaving. This may have been her presentation for LA. She has been able to take clear liquids by mouth. That has resolved. On zofran prn. Qualifiers: Vomiting type: unspecified Vomiting Intractability: non-intractable Quali fied Code(s): R11.2 - Nausea with vomiting, unspecified (5) Supratherapeutic international normalized ratio (INR) Conclusion/Plan: Patient takes 5 mg coumadin daily for previous PEs x2 and DVT. Patient stopped coumadin 01/05 in preparation for her shoulder arthoplasty planned for 01/10. Patient's INR was 3.1. No signs of bleeding noted. Hbg 10.4 and Hct 30.6. Today's INR still at 3.0 1. Continue to hold coumadin. 2. Monitor for signs of bleeding with daily CBC and coags. 3. Since she is not going to OR next Friday, surgery has been cancelled, resume coumadin when INR <2.0 (6) Hypertension Conclusion/Plan: Patient has a history of hypertension and we read where she takes metoprolol succinate 5mg on the admit med list. So metoprolol was ordered. Pharmacy and son have reconciled her old list and she is NOT on metoprolol. Blood pressure is low. She was in the low 100s systolic 3/7 with a pulse rate is in the 90s. Stop metoprolol Qualifiers: Hypertension type: essential hypertension Qualified Code(s): I10 - Essential (primary) hypertension (7) Generalized weakness from illness over 4-5 days. Plan: PT eval and tx Since she is manifesting probs swallowing, and has LLL consol on CXR, speech therapy swallow eval
[2020-01-09] MEDS: SACCHAROMYCES BOULARDII 250 MG CAPSULE PO SCH ×2 (08:14→17:16)
[2020-01-09] MEDS: AZITHROMYCIN INJ 500 MG in SODIUM CHLORIDE 0.9% 250 ML IV SCH (10:02)
[2020-01-09] MEDS: cefTRIAXone 1 GM in SODIUM CHLORIDE 0.9% MINIBAG 100 ML IV SCH (10:02)
[2020-01-09] MEDS: CITALOPRAM 10 MG TABLET PO SCH (10:03)
[2020-01-09] MEDS: ACETAMINOPHEN 325 MG TABLET PO PRN (10:26)
[2020-01-09] MEDS: oxyCODONE 5 MG TABLET PO PRN ×2 (13:12→19:01)
[2020-01-09] MEDS ORDERED: DOCUSATE SODIUM 250 MG CAPSULE PO SCH (13:30)
[2020-01-09] MEDS ORDERED: SENNA 8.6 MG TABLET PO SCH (13:30)
[2020-01-09] MEDS: LACTATED RINGERS 1,000 ML IV SCH (16:23)
--- NOTE | 2020-01-09 17:51 | DISCHARGE SUMMARY ---
"Discharge Summary Admit Date: 01/07/20 Discharge Date: 01/09/20 Discharging Provider: Olga Sanchez MD Primary Care Provider: Sarah Malhotra [facility] Code Status: Do Not Attempt Resuscitation Condition at Discharge: Fair Discharge Disposition: 02 Transfer Acute Care Hosp Discharge Facility Name: [facility] - DIAGNOSES Discharge Diagnoses with Status of Each Condition: 1. N STEMI 2. New onset atrial fibrillation 3. Moderate aortic stenosis 4. Acute left systolic heart failure 5. Community-acquired pneumonia 6. Dehydration 7. Nausea and vomiting 8. Supratherapeutic INR 9. Hypertension 10. Generalized weakness - HPI History of Present Illness: Ms. 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 Three nights ago that patients son said that she had some nasal decongestion and headache for which he gave her pseudophed and put her to bed. She was nauseous and had dry heaving throughout the night with a temperature of 100.2 degrees F. She did not feel well the following day, and again had nausea and dry heaving when she went to bed to go to sleep. She had mental confusion when she woke, which really concerned her son Brendon. He reports that she continues to take in liquids, void, and have BMs. Patient WBC 9.6, INR 3.0, Na 134, K 3.5, glucose 138, lactate 1.4, influenza A and B are negative. Chest x-ray shows left lower lobe consolidation. Vital signs 37.9 degrees C, HR 95, BP 155/83, RR 25, sating 96% on room air. Patient tachypneic when STEAM CONDITIONER FILLING student examining her and she was desaturating to 86%. Patient given IV ceftriaxone and azithromycin. Patient's PSI score is 91% or moderate risk and requires inpatient admission for treatment of community acquired pneumonia. (Doreen Lao) At this moment in time, Covid 19 virus is a consideration for patients presenting with her symptoms. She does not meet any of the screening criteria for the Department of Health for [facility] at this time. 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 Inferior subluxation fo humeral head.) Derm: reports: None - Past Surgical History Ortho: reports: Rotator cuff repair, Shoulder arthroplasty (Right shoulder. She has had 3 surgeries on this shoulder. She is scheduled to have shoulder surgery 01/10 at [facility] with Dr. Aggarwal.) - CONSULTS | PROCEDURES Procedures: 1. 2 chest x-rays. She has hypoinflation, and between the first and second c hest x-ray increased bilateral vascular and interstitial prominence that indicate mild acute interstitial infiltrate or edema. She also has a left lower lobe consolidation with pneumonia that slightly worsened. 2. Echocardiogram. No prior echocardiogram available. She has overall left ventricular systolic function severely impaired with an ejection fraction of 20 to 25%. Severe increase in left atrial volume index. Moderate right atrial enlargement. Moderate aortic stenosis with a peak/mean pressure gradient of 42 mmHg / 24 mmHg. Aortic valve area is 0.72 cm. Mild to moderate mitral regurgitation. Moderately abnormal right heart pressures with RVSP of 52 mmHg. This is a preliminary report. [place] [facility] needs to do final report. 3. Serial troponins show 117, 732, 572, 661, 452. BNP is 3067. - HOSPITAL COURSE Hospital Course: She was admitted with the presenting complaint of nausea, vomiting abdominal pain over several days. Pain was generalized, nonspecific. Found to have left lower lobe pneumonia in the emergency room and started on community-acquired pneumonia treatment. However, second day of admission she had severe acute shortness of breath that was abrupt in onset. In evaluating her, she was found to have elevated troponins that were significant. She was felt to be having a possible N STEMI. EKG did not show anything except very mild ST elevation in V2 and V3 but was nondiagnostic. However the consideration of demand ischemia was thought of. She also had a stent placed a year ago and Plavix was stopped a month ago.Her INR remained at 3. Coumadin has been held for the last 2 days. She was given 1 aspirin and a statin. Appetite improved and she was able to eat some food while she was here with no further recurrence of abdominal pain or nausea or vomiting. On final evaluation she has a new ejection fraction of 20%. New moderate aortic stenosis. We do not have old echoes to compare. She also started having new A. fib. Her deep submergence vehicle crewmember was consulted. He accepted her in transfer to [facility]. At discharge she is a very pleasant elderly female. 5 feet 2 inches tall and weighs 63 kg. 36.5. Pulse 84 and irregular. Blood pressure 102/60. I have not been able to give her CARLOS inhibitor or beta-valery because of her continued hypotension. She varies anywhere between 98 systolic to 109 systolic. Respiration is 18 and unlabored. She is 99% saturated on 1/2 L. She is alert and oriented to person and place just not the time. She is a little deaf and finds it difficult to follow conversation. But she is very donna, cheerful and cooperative. Neck does not have JVD. Lungs have diminished breath sounds at the bases but no overt crackles. Slow irregular rate and rhythm with a harsh systolic murmur. The abdomen is soft, nontender. Ankles do not have edema. Just getting her up out of bed makes her severely tachypneic. Greater than 30 minutes was spent coordinating discharge. Films have already been pushed to [facility], veterinary technologist is informed that she was able to push the echocardiogram as well. Both sons have been advised that their mom was going to be transferred today. - ALLERGIES Allergies/Adverse Reactions: Allergies Allergy/AdvReac Type Severity Reaction Status Date / Time latex Allergy Unknown Verified 01/07/20 09:27 Penicillins Allergy anaphylaxis Verified 01/07/20 09:27 - MEDICATIONS Home Medications: Ambulatory Orders Medication Instructions Recorded Confirmed Warfarin Sodium [Coumadin] 5 mg PO SUTUWEFRSA 07/14/13 01/07/20 Citalopram Hydrobromide 20 mg PO DAILY 04/19/17 01/07/20 [Citalopram HBr] Pravastatin Sodium 80 mg PO DAILY 04/19/17 01/07/20 allopurinoL [Allopurinol] 100 mg PO BID 04/19/17 01/07/20 Aspirin [Aspirin EC] 81 mg PO DAILY 01/07/20 01/07/20 Gabapentin 300 mg PO DAILY 01/07/20 01/07/20 Lactobacillus Acidophilus 1 tab PO DAILY 01/07/20 01/07/20 [Probiotic Acidophilus] Multivitamin [Theragran] 1 tab PO DAILY 01/07/20 01/07/20 Pantoprazole Sodium 40 mg PO DAILY 01/07/20 01/07/20 Warfarin Sodium 7.5 mg PO MOTH 01/07/20 01/07/20 levETIRAcetam [Levetiracetam] 250 mg PO BID 01/07/20 01/07/20 - LABS Result Diagrams: 01/09/20 05:06 01/09/20 05:06"
--- NOTE | 2020-01-09 18:49 | Discharge Plan ---
Discharge Plan Problem Reviewed?: Yes Disposition: 02 Transfer Acute Care Hosp Condition: Fair No Smoking: If you smoke, Please STOP! Call for help. Follow-up with: GERARDO ARORA MD [Primary Care Provider] -
[2020-01-09 19:47] VITALS: BP 101/60
== END 2020-01-09 19:28 | disposition short-term general hospital (02) | DRG 280 ==
LOC: ED 08:58 → MS2 10:56
PROVIDERS: ADMIT Specialist; ATTEND Specialist
DX: I21.4 Non-ST elevation (NSTEMI) myocardial infarction (principal); J18.9 Pneumonia, unspecified organism; I50.21 Acute systolic (congestive) heart failure; R40.0 Somnolence; I10 Essential (primary) hypertension; S42.211K Unspecified displaced fracture of surgical neck of right humerus, subsequent encounter for fracture with nonunion; I48.91 Unspecified atrial fibrillation; I11.0 Hypertensive heart disease with heart failure; Z87.891 Personal history of nicotine dependence; I35.0 Nonrheumatic aortic (valve) stenosis; E86.0 Dehydration; I95.9 Hypotension, unspecified; R79.1 Abnormal coagulation profile; F41.9 Anxiety disorder, unspecified; R11.2 Nausea with vomiting, unspecified; E78.5 Hyperlipidemia, unspecified; K21.9 Gastro-esophageal reflux disease without esophagitis; M19.90 Unspecified osteoarthritis, unspecified site; H91.90 Unspecified hearing loss, unspecified ear; S42.211S Unspecified displaced fracture of surgical neck of right humerus, sequela; Z79.01 Long term (current) use of anticoagulants; Z95.5 Presence of coronary angioplasty implant and graft; Z86.711 Personal history of pulmonary embolism; Z86.718 Personal history of other venous thrombosis and embolism; Z87.01 Personal history of pneumonia (recurrent); Z86.14 Personal history of Methicillin resistant Staphylococcus aureus infection
CPT/HCPCS: 36415; 71045; 80048; 80053; 81001; 83605; 83735; 83880; 84484; 85025; 85610; 87040; 87275; 87276; 93005; 93306; 94640; 96361; 96365; 96375; 97162; 97530; 99284; 99285; A9270; J7120; Q0162; 87086

== ENCOUNTER 2020-04-28 08:24 | Outpatient (CLI) | payer MEDICARE, OTHER ==
[2020-04-28 15:33] LABS: BASOPHILS # (AUTO) 0.1 10^3/uL (0.0-0.1); BASOPHILS % (AUTO) 1.3 %; EOSINOPHILS # (AUTO) 0.9 10^3/uL (0.0-0.7); EOSINOPHILS % (AUTO) 15.7 %; HGB - HEMOGLOBIN 9.5 g/dL (12.0-16.0); LYMPHOCYTES # (AUTO) 0.9 10^3/uL (1.5-3.5); LYMPHOCYTES % (AUTO) 15.7 %; MEAN CORPUSCULAR HEMOGLOBIN 34.4 pg (27.0-31.0); MEAN CORPUSCULAR HGB CONC 32.6 g/dL (32.0-36.0); MEAN CORPUSCULAR VOLUME 105.4 fL (81.0-99.0); MEAN PLATELET VOLUME 11.3 fL (7.9-10.8); MONOCYTES # (AUTO) 0.6 10^3/uL (0.0-1.0); MONOCYTES % (AUTO) 9.3 %; NEUTROPHILS # (AUTO) 3.5 10^3/uL (1.5-6.6); NEUTROPHILS % (AUTO) 57.8 %; PLT - PLATELET COUNT 200 10^3/uL (130-450); RED BLOOD COUNT 2.76 10^6/uL (4.20-5.40); RED CELL DISTRIBUTION WIDTH 13.4 % (12.0-15.0)
[2020-04-28 15:41] LABS: CALCIUM 9.2 mg/dL (8.5-10.3)
== END 2020-04-28 08:25 | disposition home or self-care (01) ==
LOC: LAB.S 08:24
PROVIDERS: ATTEND Family Medicine
DX: Z01.818 Encounter for other preprocedural examination (principal)
CPT/HCPCS: 36415; 80048; 83036; 85025; 85610

== ENCOUNTER 2021-04-03 10:59 | Emergency (ER) | payer MEDICARE, OTHER ==
--- OUTSIDE RECORDS SUMMARY | 2021-04-03 11:53 | EXTERNAL MEDICAL SUMMARY RPT | Continuity of Care Document ---
:1940 Demographics Phone Unavailable Preferred Language Unknown Marital Status Unknown Sabianism Affiliation Unknown Race Unknown Ethnic Group Unknown Author Organization [place] Address [address] [phone] Phone Allergies Encounters Medications Problems Results
--- NOTE | 2021-04-03 12:09 | ED Physician Documentation ---
History of Present Illness - Stated complaint Stated Complaint: HIGH BP - Chief complaint Chief Complaint: Cardiac - Additonal information Additional information: 80-year-old female presents emergency department for evaluation of multiple epi sodes of palpitations/flutter that she noted this morning while at home. She denies that she had chest pain but she does endorse some shortness of air. She alerted her son what was happening and she had her blood pressure checked multiple times at home. She was noted to have blood pressures in the 130s to the 150s which is atypical for her and caused her son significant alarm. No syncope, no vertigo or feelign light eaded She was diagnosed with atrial fibrillation about 3 years ago and is taking Metroprolol succinate 12.5 mg once daily. She is also on Eliquis daily. Hydraulic Mechanic is Dr. Ojeda through [facility]. She does also have a history of coronary artery disease status post stenting x1. Review of Systems Constitutional: denies: Fever, Chills Eyes: reports: Reviewed and negative Ears: reports: Reviewed and negative Nose: reports: Reviewed and negative Throat: reports: Reviewed and negative Cardiac: reports: Palpitations. denies: Chest pain / pressure, Pedal edema, Calf pain Respiratory: denies: Dyspnea, Cough GI: denies: Abdominal Pain, Nausea, Vomiting : denies: Dysuria, Frequency, Hesitancy Skin: reports: Reviewed and negative Musculoskeletal: reports: Reviewed and negative Neurologic: reports: Reviewed and negative Psychiatric: reports: Reviewed and negative Endocrine: reports: Reviewed and negative PD PAST MEDICAL HISTORY - Past Medical History Cardiovascular: Hypertension Respiratory: None, Pneumonia (History of MRSA pneumonia) Neuro: None Endocrine/Autoimmune: None GI: GERD, C.difficile (Previous history), Other (Patient's son reports altered mental status and confusion with this illness) : None Psych: Anxiety Musculoskeletal: Osteoarthritis, Other Derm: None - Past Surgical History Past Surgical History: Yes Ortho: Rotator cuff repair, Shoulder arthroplasty - Present Medications Home Medications: Ambulatory Orders Medication Instructions Recorded Confirmed Warfarin Sodium [Coumadin] 5 mg PO SUTUWEFRSA 07/14/13 01/07/20 Citalopram Hydrobromide 20 mg PO DAILY 04/19/17 01/07/20 [Citalopram HBr] Pravastatin Sodium 80 mg PO DAILY 04/19/17 01/07/20 allopurinoL [Allopurinol] 100 mg PO BID 04/19/17 01/07/20 Aspirin [Aspirin EC] 81 mg PO DAILY 01/07/20 01/07/20 Gabapentin 300 mg PO DAILY 01/07/20 01/07/20 Lactobacillus Acidophilus 1 tab PO DAILY 01/07/20 01/07/20 [Probiotic Acidophilus] Multivitamin [Theragran] 1 tab PO DAILY 01/07/20 01/07/20 Pantoprazole Sodium 40 mg PO DAILY 01/07/20 01/07/20 Warfarin Sodium 7.5 mg PO MOTH 01/07/20 01/07/20 levETIRAcetam [Levetiracetam] 250 mg PO BID 01/07/20 01/07/20 - Allergies Allergies/Adverse Reactions: Allergies Allergy/AdvReac Type Severity Reaction Status Date / Time latex Allergy Unknown Verified 04/03/21 11:28 Penicillins Allergy anaphylaxis Verified 04/03/21 11:28 - Social History Does the pt smoke?: No Smoking Status: Former smoker Does the pt drink ETOH?: Yes Does the pt have substance abuse?: No - POLST Patient has POLST: No POLST Status: Full Code PD ED PE EXPANDED - General General: Alert, No acute distress - Neck Neck: Supple w/out meningeal sx. No: Adenopathy - Cardiac Cardiac: Regular Rate, Murmur Present, Radial strong equal, Cap refill < 2 sec, Prolonged cap refill - Respiratory Respiratory: Clear to ausultation rachid. No: Distress, Labored - Abdomen Abdomen: Normal Bowel sounds. No: Tender to palpation Results - Vitals Vitals: Vital Signs - 24 hr 04/03/21 11:20 Temperature 36.3 C L Heart Rate 56 L Respiratory 18 Rate Blood Pressure 136/66 H O2 Saturation 100 Oxygen O2 Source [] Nasal cannula O2 Source Room air - EKG (time done) 1127 Rate: Rate (enter#) (51) Rhythm: NSR Ferney: Normal Intervals: Normal [place]. No: Prolonged QT QRS: LVH Ischemia: Normal ST segments Compare to prior EKG: Changed from prior EKG Computer interpretation: Agree with computer - Labs Labs: Laboratory Tests 04/03/21 04/03/21 04/03/21 12:09 12:09 12:09 WBC 5.2 RBC 2.82 L Hgb 9.6 L Hct 29.5 L MCV 104.6 H MCH 34.0 H MCHC 32.5 RDW 14.1 Plt Count 208 MPV 10.1 Neut # (Auto) 3.1 Lymph # (Auto) 1.1 L [place] # (Auto) 0.5 Eos # (Auto) 0.4 Baso # (Auto) 0.1 Absolute Nucleated RBC 0.00 Nucleated RBC % 0.0 Sodium 139 Potassium 4.5 Chloride 106 Carbon Dioxide 22 Anion Gap 11.0 BUN 31 H Creatinine 1.1 H Estimated GFR (MDRD) 48 L Glucose 97 Calcium 9.4 Total Bilirubin 1.1 H AST 27 ALT 14 Alkaline Phosphatase 50 Troponin I High Sens 13.8 B-Natriuretic Peptide Total Protein 6.9 Albumin 4.3 Globulin 2.6 Albumin/Globulin Ratio 1.7 Lipase 36 04/03/21 12:09 WBC RBC Hgb Hct MCV MCH MCHC RDW Plt Count MPV Neut # (Auto) Lymph # (Auto) [place] # (Auto) Eos # (Auto) Baso # (Auto) Absolute Nucleated RBC Nucleated RBC % Sodium Potassium Chloride Carbon Dioxide Anion Gap BUN Creatinine Estimated GFR (MDRD) Glucose Calcium Total Bilirubin AST ALT Alkaline Phosphatase Troponin I High Sens B-Natriuretic Peptide 1303 H Total Protein Albumin Globulin Albumin/Globulin Ratio Lipase - Rads (name of study) CXR Radiology: Final report received (Cardiomegaly without acute cardiopulmonary process superimposed.) PD MEDICAL DECISION MAKING - ED course Complexity details: reviewed results, re-evaluated patient, d/w patient, d/w family ED course: 80-year-old female who has a history of atrial fibrillation, Congestive heart failure and is anticoagulated comes to the emergency department for evaluation of palpitations multiple times this morning. She did not have chest pain but during the palpitations had mild shortness of air. She is on metoprolol for rate control. Her son became worried when she had blood pressures in the 140s to the 160s which is atypical for her. Screening EKG here is nonischemic and sinus. Chest x-ray is consistent with cardiomegaly unchanged from baseline but no new focal infiltrates. High- sensitivity troponin is negative. Her BNP is elevated at 1300 but this is certainly much less than she has typically been for emergency department. Here in the emergency department she has not had any ectopy or flutter. I did discuss with her son that given the relatively normal though mildly elevated blood pressures here in the emergency department no additional blood pressure management was warranted today. I did discuss the importance of foll owing up with her plumber cub. Patient is to return to the emergency department if she develops chest pain, has shortness of air, has blood pressures greater than 180 or feels faint, lightheaded or dizzy. Departure - Departure Disposition: 01 Home, Self Care Clinical Impression: Palpitations with regular cardiac rhythm, Elevated blood pressure reading, History of atrial fibrillation Condition: Stable Record reviewed to determine appropriate education?: Yes Follow-Up: Roney Ojeda MD [Physician No Access] - Comments: Belen you were seen in the emergency department today for palpitations as well as mildly elevated blood pressures at home. Your screening EKG does not show signs of a heart attack. Your troponin is not elevated. Your chest x-ray does show an unchanged enlarged heart. However there were no findings to suggest heart failure on the chest x-ray. There is no pneumonia. Your blood pressures were mildly elevated in the emergency department but no treatment of this is necessary today. I do encourage you to have a very close follow-up visit with your primary care doctor as well as your plumber cub to discuss long-term blood pressure management. Return to the emergency department if you have blood pressures higher than 180 systolic, have chest pain or shortness of air with elevated blood pressures, feel faint or have any fainting episodes.
[2021-04-03 12:15] LABS: BASOPHILS # (AUTO) 0.1 10^3/uL (0.0-0.1); BASOPHILS % (AUTO) 1.4 %; EOSINOPHILS # (AUTO) 0.4 10^3/uL (0.0-0.7); EOSINOPHILS % (AUTO) 8.1 %; HCT - HEMATOCRIT 29.5 % (37.0-47.0); HGB - HEMOGLOBIN 9.6 g/dL (12.0-16.0); LYMPHOCYTES # (AUTO) 1.1 10^3/uL (1.5-3.5); LYMPHOCYTES % (AUTO) 21.2 %; MEAN CORPUSCULAR HGB CONC 32.5 g/dL (32.0-36.0); MEAN CORPUSCULAR VOLUME 104.6 fL (81.0-99.0); MEAN PLATELET VOLUME 10.1 fL (7.9-10.8); MONOCYTES # (AUTO) 0.5 10^3/uL (0.0-1.0); MONOCYTES % (AUTO) 10.2 %; NEUTROPHILS # (AUTO) 3.1 10^3/uL (1.5-6.6); NEUTROPHILS % (AUTO) 58.9 %; PLT - PLATELET COUNT 208 10^3/uL (130-450); RED BLOOD COUNT 2.82 10^6/uL (4.20-5.40); RED CELL DISTRIBUTION WIDTH 14.1 % (12.0-15.0); WHITE BLOOD COUNT 5.2 x10^3/uL (4.8-10.8)
--- NOTE | 2021-04-03 12:19 | XRAY Report ---
PROCEDURE: Chest 1 View X-Ray INDICATIONS: Chest pain TECHNIQUE: One view of the chest was acquired. COMPARISON: None FINDINGS: Surgical changes and devices: None. Lungs and pleura: No pleural effusions or pneumothorax. Lungs are clear. Mediastinum: Mediastinal contours appear normal. Heart size is enlarged. Bones and chest wall: No suspicious bony lesions. Overlying soft tissues appear unremarkable. Rever se total shoulder arthroplasty on the right. IMPRESSION: Cardiomegaly without acute cardiopulmonary process superimposed. Reviewed by: John Gautam MD on 04/03/2021 12:17 PM PDT Approved by: John Gautam MD on 04/03/2021 12:17 PM PDT Station ID: [id number]
[2021-04-03 12:33] LABS: ALBUMIN 4.3 g/dL (3.2-5.5); ALBUMIN/GLOBULIN RATIO 1.7 (1.0-2.2); BILIRUBIN,TOTAL 1.1 mg/dL (0.2-1.0); CALCIUM 9.4 mg/dL (8.5-10.3); CREATININE 1.1 mg/dL (0.4-1.0); POTASSIUM 4.5 mmol/L (3.5-5.0); TOTAL PROTEIN 6.9 g/dL (6.7-8.2)
[2021-04-03 13:58] VITALS: BP 151/66
== END 2021-04-03 14:06 | disposition home or self-care (01) ==
LOC: ED 10:59
DX: R00.2 Palpitations (principal); R06.02 Shortness of breath; I10 Essential (primary) hypertension; I25.10 Atherosclerotic heart disease of native coronary artery without angina pectoris; Z95.5 Presence of coronary angioplasty implant and graft; I48.91 Unspecified atrial fibrillation; Z79.01 Long term (current) use of anticoagulants; Z79.82 Long term (current) use of aspirin; Z87.891 Personal history of nicotine dependence
CPT/HCPCS: 36415; 80053; 83690; 83880; 84484; 85025; 93005; 99284

== ENCOUNTER 2023-01-03 18:40 | Outpatient (CLI) | payer MEDICARE, OTHER | END 2023-01-03 18:41 | disposition critical access hospital (66) | LOC: EMS 18:40 | DX: R40.4 Transient alteration of awareness (principal); R11.0 Nausea; R42 Dizziness and giddiness; I95.9 Hypotension, unspecified | CPT/HCPCS: A0425; A0427 ==

== ENCOUNTER 2023-01-03 19:05 | Emergency (ER) | payer MEDICARE, OTHER ==
--- NOTE | 2023-01-03 19:11 | ED Physician Documentation ---
PD HPI SYNCOPE - Stated complaint Stated Complaint: SYNCOPE - History obtained from History obtained from: Patient, EMS - History of Present Illness Witnessed: Unwitnessed (The patient states she got up from laying down and felt a little bit lightheaded going to the bathroom. She was seated on the toilet and then subsequently awoke on the floor. Her son heard some noise and went into the bathroom and found her slumped on the toilet. He laid her gently to the floor.) Timing - onset: Today Duration: Minutes Preceding symptoms: Light headed, Generalized weakness. No: Headache, Chest pain, Palpitations, Dyspnea, Abdominal pain Associated symptoms: No: Headache, Chest pain, Palpitations, Nausea / vomiting, Abdominal pain Contributing factors: Just stood up. No: Recent med change, Decreased PO intake Injury occurred: No: Fell, Head injury Similar symptoms before: Has not had sx before Review of Systems Constitutional: denies: Fever, Chills Nose: denies: Rhinorrhea / runny nose, Congestion Throat: denies: Sore throat Cardiac: denies: Chest pain / pressure, Palpitations Respiratory: denies: Cough GI: denies: Abdominal Pain, Vomiting, Diarrhea Neurologic: denies: Headache, Head injury PD PAST MEDICAL HISTORY - Past Medical History Cardiovascular: Hypertension Respiratory: None, Pneumonia (History of MRSA pneumonia) Neuro: None Endocrine/Autoimmune: None GI: GERD, C.difficile (Previous history), Other (Patient's son reports altered mental status and confusion with this illness) : None Psych: Anxiety Musculoskeletal: Osteoarthritis, Other Derm: None - Past Surgical History Past Surgical History: Yes Ortho: Rotator cuff repair, Shoulder arthroplasty - Present Medications Home Medications: Ambulatory Orders Medication Instructions Recorded Confirmed Citalopram Hydrobromide 20 mg PO DAILY 04/19/17 01/03/23 [Citalopram HBr] allopurinoL [Allopurinol] 100 mg PO BID 04/19/17 01/03/23 Aspirin [Aspirin EC] 81 mg PO DAILY 01/07/20 01/03/23 Gabapentin 300 mg PO DAILY 01/07/20 01/03/23 Pantoprazole Sodium 40 mg PO DAILY 01/07/20 01/03/23 levETIRAcetam [Levetiracetam] 250 mg PO BID 01/07/20 01/03/23 - Allergies Allergies/Adverse Reactions: Allergies Allergy/AdvReac Type Severity Reaction Status Date / Time latex Allergy Unknown Verified 01/03/23 19:18 Penicillins Allergy anaphylaxis Verified 01/03/23 19:18 - Social History Does the pt smoke?: No Smoking Status: Former smoker Does the pt drink ETOH?: Yes Does the pt have substance abuse?: No - POLST Patient has POLST: No POLST Status: Full Code PD ED PE NORMAL - Vitals Vital signs reviewed: Yes - General General: Alert and oriented X 3, No acute distress, Well developed/nourished - HEENT HEENT: Atraumatic - Neck Neck: Supple, no meningeal sign, No adenopathy - Cardiac Cardiac: RRR, No murmur - Respiratory Respiratory: Clear bilaterally - Abdomen Abdomen: Soft, Non tender - Derm Derm: Normal color, Warm and dry - Extremities Extremities: Normal ROM s pain, No edema, No calf tenderness / cord - Neuro Neuro: Alert and oriented X 3, No motor deficit, Normal speech Results - Vitals Vitals: Vital Signs - 24 hr 01/03/23 01/03/23 01/03/23 19:12 19:30 20:00 Temperature 36 C L Heart Rate 66 61 60 Heart Rate [ Sitting] Heart Rate [ Standing] Heart Rate [ Supine] Respiratory 18 13 16 Rate Blood Pressure 90/50 L 86/43 L 90/47 L Blood Pressure [Sitting] Blood Pressure [Standing] Blood Pressure [Supine] O2 Saturation 100 100 100 01/03/23 01/03/23 01/03/23 20:30 21:00 21:05 Temperature Heart Rate 61 60 Heart Rate [ 60 Sitting] Heart Rate [ 66 Standing] Heart Rate [ 70 Supine] Respiratory 17 Rate Blood Pressure 101/53 L 91/60 Blood Pressure 97/63 [Sitting] Blood Pressure 91/60 [Standing] Blood Pressure 92/60 [Supine] O2 Saturation 100 100 01/03/23 21:54 Temperature Heart Rate 60 Heart Rate [ Sitting] Heart Rate [ Standing] Heart Rate [ Supine] Respiratory 18 Rate Blood Pressure 119/54 L Blood Pressure [Sitting] Blood Pressure [Standing] Blood Pressure [Supine] O2 Saturation 99 Oxygen O2 Source [With Activity] Nasal cannula O2 Source Room air - EKG (time done) 19:48 Rate: Rate (enter#) (62) Rhythm: Paced Intervals: Wide QRS Ischemia: Non specific changes - Labs Labs: Laboratory Tests 01/03/23 01/03/23 01/03/23 19:41 19:41 19:41 WBC 5.2 RBC 2.62 L Hgb 8.8 L Hct 27.7 L MCV 105.7 H MCH 33.6 H MCHC 31.8 L RDW 14.6 Plt Count 143 MPV 10.5 Neut # (Auto) 3.1 Lymph # (Auto) 1.1 L [place] # (Auto) 0.6 Eos # (Auto) 0.4 Baso # (Auto) 0.1 Absolute Nucleated RBC 0.00 Nucleated RBC % 0.0 Sodium 139 Potassium 3.7 Chloride 111 Carbon Dioxide 17 L Anion Gap 11.0 BUN 29 H Creatinine 1.3 H Estimated GFR (MDRD) 39 L Glucose 83 Calcium 8.7 Magnesium 1.9 Total Bilirubin 0.2 AST 27 ALT 15 Alkaline Phosphatase 47 Troponin I High Sens 19.1 H* B-Natriuretic Peptide Total Protein 5.8 L Albumin 3.6 Globulin 2.2 Albumin/Globulin Ratio 1.6 Lipase 45 01/03/23 19:41 WBC RBC Hgb Hct MCV MCH MCHC RDW Plt Count MPV Neut # (Auto) Lymph # (Auto) [place] # (Auto) Eos # (Auto) Baso # (Auto) Absolute Nucleated RBC Nucleated RBC % Sodium Potassium Chloride Carbon Dioxide Anion Gap BUN Creatinine Estimated GFR (MDRD) Glucose Calcium Magnesium Total Bilirubin AST ALT Alkaline Phosphatase Troponin I High Sens B-Natriuretic Peptide 319 H Total Protein Albumin Globulin Albumin/Globulin Ratio Lipase PD Medical Decision Making - ED course Complexity details: considered differential, d/w patient, d/w family (son gives his perspective on finding patient slumped and duration of syncope. ) ED course: The patient had been feeling well. She got up from lying down and felt a little lightheaded and then fainted while on the toilet. She was lowered to the ground by her son. No injury. She appears well here. Basic tests were done to evaluate for blood count and electrolytes and signs for heart injury. She is typically anemic and her blood count is at baseline. Her EKG shows a paced rhythm. Unclear the cause of her fainting. It seems like a postural and micturition syncope. No signs of more significant cause with normal labs or certainly at baseline. Negative troponin. We note she could not have had a bradycardia given a pacemaker. No signs of tachycardia or arrhythmias at this point. The patient feels well at this point and she and her son feel comfortable going home. Departure - Departure Disposition: 01 Home, Self Care Clinical Impression: Episode of syncope Qualifiers: Syncope type: vasovagal syncope Qualified Code(s): R55 - Syncope and collapse Condition: Stable Record reviewed to determine appropriate education?: Yes Instructions: ED Syncope Vasovagal Comments: Your EKG, chest x-ray, blood tests are normal without any acute abnormalities. You are at baseline level of anemia compared to your prior blood counts. Your troponin which is a gauge of heart muscle injury is negative. Electrolytes and blood sugar are good. Your blood pressure is at your baseline level for you. Your pacemaker appears to be working just fine. I presume you had a transient drop in blood pressure from standing up and going to the bathroom, both of which can cause a lowering of the blood pressure briefly. Stay well-hydrated. Continue your medicines as normal otherwise. Follow-up with your primary care if recurring episodes of lightheadedness as there may be need to change some medication occasions but otherwise I would just continue with your normal right now. Discharge Date/Time: 01/03/23 21:54
[2023-01-03] MEDS ORDERED: SODIUM CHLORIDE 0.9% 1,000 ML IV STA (19:30)
[2023-01-03 19:47] LABS: BASOPHILS # (AUTO) 0.1 10^3/uL (0.0-0.1); EOSINOPHILS # (AUTO) 0.4 10^3/uL (0.0-0.7); EOSINOPHILS % (AUTO) 7.1 %; HCT - HEMATOCRIT 27.7 % (37.0-47.0); HGB - HEMOGLOBIN 8.8 g/dL (12.0-16.0); LYMPHOCYTES # (AUTO) 1.1 10^3/uL (1.5-3.5); LYMPHOCYTES % (AUTO) 20.4 %; MEAN CORPUSCULAR HEMOGLOBIN 33.6 pg (27.0-31.0); MEAN CORPUSCULAR HGB CONC 31.8 g/dL (32.0-36.0); MEAN CORPUSCULAR VOLUME 105.7 fL (81.0-99.0); MEAN PLATELET VOLUME 10.5 fL (7.9-10.8); MONOCYTES # (AUTO) 0.6 10^3/uL (0.0-1.0); NEUTROPHILS # (AUTO) 3.1 10^3/uL (1.5-6.6); NEUTROPHILS % (AUTO) 60.1 %; PLT - PLATELET COUNT 143 10^3/uL (130-450); RED BLOOD COUNT 2.62 10^6/uL (4.20-5.40); RED CELL DISTRIBUTION WIDTH 14.6 % (12.0-15.0); WHITE BLOOD COUNT 5.2 x10^3/uL (4.8-10.8)
--- NOTE | 2023-01-03 19:48 | XRAY Report ---
PROCEDURE: Chest 1 View X-Ray INDICATIONS: syncope TECHNIQUE: One view of the chest was acquired. COMPARISON: None. FINDINGS: Surgical changes and devices: Left pacemaker with right atrial and right ventricular leads. TAVR. Ri ght shoulder arthroplasty. Lungs and pleura: No pleural effusions or pneumothorax. Lungs are clear. Mediastinum: Mediastinal contours appear normal. Heart size is prominent. Bones and chest wall: Dysplasia or sequelae of prior fracture of the left proximal humerus. Overlyin g soft tissues appear unremarkable. IMPRESSION: No acute cardiopulmonary abnormality identified. Reviewed by: Fam Brandt MD on 01/03/2023 7:47 PM [facility] Approved by: Fam Brandt MD on 01/03/2023 7:47 PM [facility] Station ID: [id number]
[2023-01-03 20:00] LABS: ALBUMIN 3.6 g/dL (3.2-5.5); ALBUMIN/GLOBULIN RATIO 1.6 (1.0-2.2); BILIRUBIN,TOTAL 0.2 mg/dL (0.2-1.0); CALCIUM 8.7 mg/dL (8.5-10.3); CREATININE 1.3 mg/dL (0.4-1.0); MAGNESIUM 1.9 mg/dL (1.7-2.8); POTASSIUM 3.7 mmol/L (3.5-5.0); TOTAL PROTEIN 5.8 g/dL (6.7-8.2)
[2023-01-03 21:55] VITALS: BP 119/54
== END 2023-01-03 21:54 | disposition home or self-care (01) ==
LOC: EDUNIT# → ED 19:05
DX: R55 Syncope and collapse (principal); Z87.891 Personal history of nicotine dependence
CPT/HCPCS: 36415; 80053; 83690; 83735; 83880; 84484; 85025; 93005; 96360; 99284

== ENCOUNTER 2023-03-19 16:03 | Emergency (ER) | payer MEDICARE, OTHER ==
[2023-03-19 16:22] VITALS: BP 147/76
--- NOTE | 2023-03-19 16:51 | XRAY Report ---
PROCEDURE: Foot 3 View LT INDICATIONS: Trauma TECHNIQUE: 3 views of the foot were acquired. COMPARISON: None. FINDINGS: Bones: There is diffuse osteopenia. Osteoarthritic changes are noted throughout left foot. Age-indet erminate deformity involving second through fourth metatarsal necks are seen. No suspicious bony lesi ons. Soft tissues: No suspicious soft tissue calcifications or masses. IMPRESSION: Age-indeterminate deformities involving second through fourth metatarsal necks, suggest clinical benji elation for focal pain in this area. Osteoarthritic changes throughout left foot with diffuse osteope jon. No other fracture or dislocation. Reviewed by: Xiang Joel MD on 03/19/2023 3:50 PM [facility] Approved by: Xiang Joel MD on 03/19/2023 3:50 PM [facility] Station ID: [id number]
[2023-03-19] MEDS ORDERED: oxyCODONE 5 MG TABLET PO STA (18:50)
--- NOTE | 2023-03-19 18:57 | ED Physician Documentation ---
History of Present Illness - Stated complaint Stated Complaint: LT FOOT PX - Chief complaint Chief Complaint: Trauma Ext - Additonal information Additional information: 82-year-old female presents emergency department for evaluation of acute left foot pain. She is normally ambulatory independently and was working in her garden today when she accidentally struck her foot hard against a concrete step. She had immediate pain in the distal foot and could not bear weight. She is attended to by her son who is her caregiver. He does report to me that though the patient is typically ambulatory she does have at home and willing walker, a wheelchair as well as multiple assistive devices. Patient does have a known history of osteoporosis/osteopenia but no known history of fracture to this foot Patient is anticoagulated on Xarelto due to a history of valve repair. Review of Systems Constitutional: denies: Fever, Chills Nose: reports: Reviewed and negative Throat: reports: Reviewed and negative Cardiac: reports: Reviewed and negative Musculoskeletal: reports: Extremity pain PD PAST MEDICAL HISTORY - Past Medical History Cardiovascular: Hypertension Respiratory: None, Pneumonia (History of MRSA pneumonia) Neuro: None Endocrine/Autoimmune: None GI: GERD, C.difficile (Previous history), Other (Patient's son reports altered mental status and confusion with this illness) : None Psych: Anxiety Musculoskeletal: Osteoarthritis, Other Derm: None - Past Surgical History Past Surgical History: Yes Ortho: Rotator cuff repair, Shoulder arthroplasty Cardiovascular: Pacemaker - Present Medications Home Medications: Ambulatory Orders Medication Instructions Recorded Confirmed Citalopram Hydrobromide 20 mg PO DAILY 04/19/17 01/03/23 [Citalopram HBr] allopurinoL [Allopurinol] 100 mg PO BID 04/19/17 01/03/23 Aspirin [Aspirin EC] 81 mg PO DAILY 01/07/20 01/03/23 Gabapentin 300 mg PO DAILY 01/07/20 01/03/23 Pantoprazole Sodium 40 mg PO DAILY 01/07/20 01/03/23 levETIRAcetam [Levetiracetam] 250 mg PO BID 01/07/20 01/03/23 oxyCODONE [Roxicodone] 5 mg PO TID PRN #20 tablet 03/19/23 - Allergies Allergies/Adverse Reactions: Allergies Allergy/AdvReac Type Severity Reaction Status Date / Time latex Allergy Unknown Verified 03/19/23 16:20 Penicillins Allergy anaphylaxis Verified 03/19/23 16:20 - Social History Does the pt smoke?: No Smoking Status: Former smoker Does the pt drink ETOH?: Yes Does the pt have substance abuse?: No - POLST Patient has POLST: No POLST Status: Full Code PD ED PE NORMAL - General General: Alert and oriented X 3. No: No acute distress (Peers uncomfortable and in pain) - Extremities Extremities: Other (Left foot focally tender on the dorsum of the distal forefoot. No obvious deformity or ecchymosis. She does have sequelae of peripheral vascular disease but brisk cap refill. 1+ DP pulse.) - Neuro Neuro: Alert and oriented X 3 Eye Opening: Spontaneous Motor: Obeys Commands Verbal: Oriented GCS Score: 15 Results - Vitals Vitals: Vital Signs - 24 hr 03/19/23 03/19/23 03/19/23 16:18 18:23 18:44 Temperature 36.7 C Heart Rate 61 Respiratory 20 18 20 Rate Blood Pressure 147/76 H O2 Saturation 97 Oxygen O2 Source [With Activity] Nasal cannula O2 Source Room air - Rads (name of study) left foot Relevant Findings:: Final report received (Age-indeterminate deformities involving the second third and fourth metatarsal necks, suggest clinical correlation for focal pain in this area) PD Medical Decision Making - ED course Complexity details: reviewed results, re-evaluated patient, considered differential, d/w patient ED course: 82-year-old female presents emergency department for evaluation of acute left foot pain. She does have known osteopenia and banged her foot against a hard concrete step. Was unable to bear weight since. On exam she does have sequelae of peripheral vascular disease but brisk cap refill 1+ DP pulse. She is focally tender in the distal forefoot along the Distal second third and fourth toes. An x-ray as read by the radiologist Does indicate deformities along the second third and fourth metatarsal necks. This is in the location where the patient is exquisitely tender. Given the age I do not feel that she would be benefited from a fiberglass splint. As such she is placed in a walking boot. I discussed with her son that she will likely be nonweightbearing until seen and cleared by orthopedics. He feels comfortable and confident in his ability to help care for her at home. She cannot take NSAIDs as she is already on a DOAC. I am going to prescribe a limited amount of oxycodone for severe pain. We did discuss the usual emergent return precautions. I am prescribing a short course of short-acting opioid pain medication for this patient. I have reviewed the patients [employer] and no concerning findings were noted. I have discussed that the opioids are for short term therapy only, and will not be refilled from the ED. Departure - Departure Disposition: 01 Home, Self Care Clinical Impression: Fracture of metatarsal of left foot, closed Qualifiers: Encounter type: initial encounter Metatarsal bone: unspecified metatarsal Fracture alignment: nondisplaced Qualified Code(s): S92.302A - Fracture of unspecified metatarsal bone(s), left foot, initial encounter for closed fracture Condition: Serious Record reviewed to determine appropriate education?: Yes Instructions: ED Fx Foot Follow-Up: GERARDO ARORA MD [Primary Care Provider] - Prescriptions: oxyCODONE [Roxicodone] 5 mg PO TID PRN #20 tablet PRN Reason: Pain Comments: Belen you appear to have banged your foot hard against a concrete step. You have some pain in the distal foot and the x-ray shows that there are some deformities involving the second third and fourth metatarsal necks. These will likely take many weeks to heal. We have placed you in a walking boot though you will not want to walk on this until seen and cleared by orthopedics. Please call your primary care doctor tomorrow to request the referral. I am prescribing a limited amount of oxycodone to be used for severe pain only. Use this cautiously. It may make you dizzy, confused and constipated. I am prescribing a short course of narcotic pain medication for you. These are potentially dangerous and addictive medications that should be used carefully. These medications may constipate you. Take an [id number] stool softener (docusate) twice daily with plenty of water while taking these medications. If you go 24 hours without a bowel movement, take [id number] miralax, per package instructions. Do not drink or drive while taking these medications. If you received narcotic or sedating medications while in the emergency department, do not drive for 24 hours. Store this medication in a safe, secure place and out of reach of children. It is a violation of federal law to give or sell this medication to another person or to use in a manner other than prescribed. The ED will not refill narcotic prescriptions, including prescriptions lost or stolen. To dispose of unwanted medications: 1. [facility] at [address] in [place] has a medication drop box. They accept prescription medications (in pill form) Friday through Friday 9:00 a.m. to 5:00 p.m. 2. [facility] accepts prescription medications (in pill form only) for disposal year round. Call for more information. 3. Contact the [facility] for the next [facility] sponsored prescription drug collection event. , x7310, or x7310; Note that many narcotic pain relievers also contain Tylenol/acetaminophen. Please ensure that your total dose of acetaminophen from all sources does not exceed 3 g (3000 mg) per day.
== END 2023-03-19 19:14 | disposition home or self-care (01) ==
LOC: ED 16:03
DX: S92.302A Fracture of unspecified metatarsal bone(s), left foot, initial encounter for closed fracture (principal); W22.8XXA Striking against or struck by other objects, initial encounter; I10 Essential (primary) hypertension; Z79.01 Long term (current) use of anticoagulants; Z79.82 Long term (current) use of aspirin; Z79.899 Other long term (current) drug therapy; Z87.891 Personal history of nicotine dependence
CPT/HCPCS: 73630; 99283; 99284; A9270